=== PATIENT | female | born 1950 | race Caucasian/White ===

== ENCOUNTER → 2018-09-10 09:39 | Outpatient (CLI) | payer MEDICARE, OTHER, SELFPAY ==
--- NOTE | 2018-09-10 | DI.MRI.S_ITS ---
PROCEDURE: MR SHOULDER LT WO CON INDICATIONS: IMPINGEMENT SYNDROME OF LEFT SHOULDER TECHNIQUE: Noncontrast oblique coronal T2 fast spin echo with fat saturation, oblique sagittal T1 spin echo and T2 fast spin echo with fat saturation, axial T1 spin echo and T2 fast spin echo with fat saturation through the shoulder. COMPARISON: Outside Film, CR, XR SHOULDER 2+ VIEWS LEFT, 08/27/2018, 10:23. FINDINGS: Image quality: Excellent. Rotator cuff: Partial-thickness articular sided tear of the supraspinatus tendon measuring approximately 1.0 cm in the AP dimension as seen on sagittal image 16 series 10. The infraspinatus and teres minor tendons appear intact. There is subscapularis partial thickness articular sided tear probably 50% of tendon thickness. A slitlike perforation is seen on image 14 series 10, image 12 series 6. There is borderline atrophy of the supraspinatus muscle and diffuse fatty infiltration of the supraspinatus and infraspinatus muscles. Bones and bursae: No bone marrow contusions or fractures. Mild acromioclavicular joint degeneration. The acromion demonstrates conventional anatomy, without an os acromiale. No pathologic subacromial-subdeltoid or subcoracoid bursal fluid is present. Capsule and soft tissues: Ill-defined frayed appearance of the superior labrum which is technically age-indeterminate and could be degenerative. There is also blunted appearance of the posterior labrum and mild irregularity although this could represent posterior synovial fold image 12 series 6. No posterior subluxation of the humeral head relative to the glenoid nor is there glenoid rim segmental sclerosis. The long head of the biceps tendon demonstrates normal location and morphology. There is obliteration of the subcoracoid fat. The coracohumeral ligament is not well seen although probably intact on image 10 series 10. IMPRESSION: Partial thickness articular sided tear of the supraspinatus tendon. Full-thickness small slitlike perforation, and additional partial-thickness articular sided tear of the subscapularis tendon. Borderline atrophy of the supraspinatus. Diffuse fatty infiltration of the supraspinatus and infraspinatus muscles. Age-indeterminate superior labral fraying, also involving the posterior segment. Dictated by: Grzegorz Juarez M.D. on 09/10/2018 at 12:01 Approved by: Grzegorz Juarez M.D. on 09/10/2018 at 12:12
== END ==
PROVIDERS: Family Provider Family Medicine; PCP Family Medicine; Visit Provider Orthopaedic Surgery
DX: M75.42 Impingement syndrome of left shoulder (principal); M75.112 Incomplete rotator cuff tear or rupture of left shoulder, not specified as traumatic
CPT/HCPCS: 73221

== ENCOUNTER 2019-09-12 10:47 | Emergency (ER) | payer MEDICARE, OTHER, SELFPAY ==
[2019-09-12 10:52] VITALS: BP 126/79; PULSE 100; RESP 13; TEMP 37; O2SAT 98
--- NOTE | 2019-09-12 11:22 | DI.US.S_ITS ---
PROCEDURE: US PERIPH VENOUS LOW EXTREM RT INDICATIONS: PAIN TECHNIQUE: Real-time imaging, as well as color and pulse Doppler interrogation, were performed of the lower extremity deep veins from the inguinal ligament to the popliteal fossa. COMPARISON: None. FINDINGS: The common femoral, femoral and popliteal veins are normally compressible, and free of intraluminal thrombus. Color and pulse Doppler demonstrate normal phasic intraluminal flow. There is normal augmentation response to distal compression maneuver. IMPRESSION: Negative for deep venous thrombosis. Dictated by: Piero Benitez M.D. on 09/12/2019 at 11:06 Approved by: Piero Benitez M.D. on 09/12/2019 at 11:06
[2019-09-12] MEDS: KETOROLAC 60 MG/2 ML VIAL 30 MG IM (11:29)
[2019-09-12] MEDS: CYCLOBENZAPRINE 5 MG TABLET PO (11:41)
[2019-09-12 12:05] VITALS: BP 119/57; PULSE 83; RESP 16; O2SAT 96
--- NOTE | 2019-09-12 12:45 | ED.LOWEXIN ---
HPI - Extremity Injury (Lower) <ANGELA Beck - Last Filed: 09/12/19 14:06> General Chief Complaint: Extremity Injury, Lower Stated Complaint: R leg something wrong cant walk on it Time Seen by Provider: 09/12/19 11:00 Source: patient and family Mode of arrival: Wheelchair Limitations: no limitations History of Present Illness HPI Narrative: The patient is a 61-year-old female nonsmoker with history of complex regional pain syndrome who presents with a chief complaint of right leg pain. She states she woke up with today. She states she has a history of complex regional pain syndrome that is only applicable to her left leg. She denies any falls or trauma. She denies any twisting or abnormal activity. She took 1 5 mg Flexeril at 6:00 a.m. this morning, as well as her oxycodone at 6:30 a.m. and again at 10:00 a.m.. She denies any fevers, nausea vomiting diarrhea. She states her leg is normal temperature, she is slightly concerned about a blood clot as she does not leave the most active lifestyle and has a family history there of. States that the pain radiates up the back of her leg, from her calf up to her thigh. She denies any rashes. Related Data Home Medications Medication Instructions Recorded Confirmed atorvastatin 40 mg tablet 40 mg PO DAILY 06/23/19 06/23/19 citalopram 20 mg tablet 20 mg PO DAILY 06/23/19 06/23/19 esomeprazole magnesium 40 mg 40 mg PO DAILY 06/23/19 06/23/19 capsule,delayed release gabapentin 600 mg tablet 600 mg PO QID tab 06/23/19 06/23/19 levothyroxine 50 mcg capsule 50 mcg PO DAILY 06/23/19 06/23/19 metformin 1,000 mg tablet 1,000 mg PO BID 06/23/19 06/23/19 montelukast 10 mg tablet 10 mg PO QPM 06/23/19 06/23/19 Previous Rx's Medication Instructions Recorded ketorolac 10 mg PO TID #15 tab 09/12/19 Allergies Allergy/AdvReac Type Severity Reaction Status Date / Time No Known Drug Allergies Allergy Verified 06/23/19 13:18 Review of Systems <ANGELA Beck - Last Filed: 09/12/19 14:06> Review of Systems Narrative: GENERAL: Denies chills, fatigue, malaise, fever, sweats. HEENT: Denies sinus pain, ear pain, sore throat, difficulty swallowing, dizziness. RESPIRATORY: Denies dyspnea, cough, wheezing, hemoptysis, sputum. CARDIOVASCULAR: Denies chest pain, palpitations, orthopnea, edema, GASTROINTESTINAL: Denies nausea, vomiting, abdominal pain, diarrhea, constipation, melena. : Denies dysuria, frequency, incontinence, hematuria, urinary retention. MUSCULOSKELETAL: See HPI SKIN: See HPI NEUROLOGIC: Denies weakness, headache, numbness, change in speech, confusion, seizures, incoordination. PSYCHIATRIC: No concerning psychosocial issues. 12 point review of systems is negative except for those stated above Patient History <ANGELA Beck - Last Filed: 09/12/19 14:06> Social History Smoking Status: Never smoker Substance Use Type: does not use Exam <ANGELA Beck - Last Filed: 09/12/19 14:06> Narrative Exam Narrative: GENERAL: This is a well-nourished, well-developed patient, appears uncomfortabl HEAD: Atraumatic. Normocephalic. No temporal or scalp tenderness. EYES: Pupils equal round and reactive. Extraocular motions intact. No scleral icterus. No injection or drainage. ENT: Nose without bleeding, purulent drainage or septal hematoma. Throat without erythema, tonsillar hypertrophy or exudate. Uvula midline. Airway patent. NECK: Trachea midline. No JVD or lymphadenopathy. Supple, nontender, no meningeal signs. CARDIOVASCULAR: Regular rate and rhythm RESPIRATORY: Clear to auscultation. Breath sounds equal bilaterally. No wheezes, rales, or rhonchi. No cough. No increased respiratory effort. No accessory muscle use. GASTROINTESTINAL: Abdomen soft, non-tender, nondistended. No hepato-splenomegaly, or palpable masses. No guarding. EXTREMITIES: General pain to palpation posterior aspect of right leg, ranging from calf all the way through thigh. Positive pedal pulses. Warmth is normal bilateral legs. Able to flex and extend the knee. BACK: Nontender without deformity or crepitance. No flank tenderness. NEURO: AOx3. SKIN: No rash or erythema on visible skin including right flank. Initial Vital Signs Initial Vital Signs: Vital Signs Temperature 98.6 F 09/12/19 10:52 Pulse Rate 100 H 09/12/19 10:52 Respiratory Rate 13 09/12/19 10:52 Blood Pressure 126/79 09/12/19 10:52 Pulse Oximetry 98 09/12/19 10:52 <Jing Portillo DO - Last Filed: 09/13/19 07:12> Initial Vital Signs Initial Vital Signs: Vital Signs Temperature 98.6 F 09/12/19 10:52 Pulse Rate 100 H 09/12/19 10:52 Respiratory Rate 13 09/12/19 10:52 Blood Pressure 126/79 09/12/19 10:52 Pulse Oximetry 98 09/12/19 10:52 Course <ANGELA Beck - Last Filed: 09/12/19 14:06> Orders Ordered: Discontinued Medications Cyclobenzaprine HCl (Flexeril) 5 mg PO NOW ONE Stop: 09/12/19 11:34 Last Admin: 09/12/19 11:41 Dose: 5 mg Documented by: RIGO Ketorolac Tromethamine (Toradol) 30 mg IM NOW ONE Stop: 09/12/19 11:20 Last Admin: 09/12/19 11:29 Dose: 30 mg Documented by: RIGO Vital Signs Vital signs: Vital Signs - 8 hr 09/12/19 10:52 09/12/19 12:05 09/12/19 13:09 Temperature 98.6 F Pulse Rate 100 H 83 95 H Respiratory Rate 13 16 16 Blood Pressure 126/79 Blood Pressure [Left Arm] 119/57 L 116/69 Pulse Oximetry 98 96 97 <Jing Portillo DO - Last Filed: 09/13/19 07:12> Orders Ordered: Discontinued Medications Cyclobenzaprine HCl (Flexeril) 5 mg PO NOW ONE Stop: 09/12/19 11:34 Last Admin: 09/12/19 11:41 Dose: 5 mg Documented by: RIGO Ketorolac Tromethamine (Toradol) 30 mg IM NOW ONE Stop: 09/12/19 11:20 Last Admin: 09/12/19 11:29 Dose: 30 mg Documented by: RIGO Vital Signs Vital signs: Vital Signs - 8 hr 09/12/19 10:52 09/12/19 12:05 09/12/19 13:09 Temperature 98.6 F Pulse Rate 100 H 83 95 H Respiratory Rate 13 16 16 Blood Pressure 126/79 Blood Pressure [Left Arm] 119/57 L 116/69 Pulse Oximetry 98 96 97 MDM - Extremity Injury (Lower) <ANGELA Beck - Last Filed: 09/12/19 14:06> Differential Diagnosis Differential diagnosis: Likely ankle sprain and strain, acute internal derangement of knee, fracture of femur and other (DVT, complex regional pain syndrome) Imaging Data Venous US: Radiologist's impression: Sima Payton 69 F [address] [address] Ultrasound Report Signed Patient: Sima Payton LMR#: [id number] : [id number]:[id number] Age/Sex: 69 / FDate of Service: 09/12/19 Loc: ED Accession Number: [id number] Procedure: US periph venous low extrem rt Ordering Provider: Yadira Frye PROCEDURE: US PERIPH VENOUS LOW EXTREM RT INDICATIONS: PAIN TECHNIQUE: Real-time imaging, as well as color and pulse Doppler interrogation, were performed of the lower extremity deep veins from the inguinal ligament to the popliteal fossa. COMPARISON: None. FINDINGS: The common femoral, femoral and popliteal veins are normally compressible, and free of intraluminal thrombus. Color and pulse Doppler demonstrate normal phasic intraluminal flow. There is normal augmentation response to distal compression maneuver. IMPRESSION: Negative for deep venous thrombosis. Dictated by: Piero Benitez M.D. on 09/12/2019 at 11:06 Approved by: Piero Benitez M.D. on 09/12/2019 at 11:06 [facility] Narrative Medical decision making narrative: The patient is a 61-year-old female with history of complex regional pain syndrome who presents with a chief complaint of right leg pain. She states that she usually has a complex regional pain syndrome on her left leg. She states that she is in so much pain she cannot walk. Given that she is not need an actively extend family history, she is concerned about blood clots. Ultrasound was taken and was negative for deep vein thrombosis. The patient responded very well to Flexeril, which she has a prescription of at home as well as Toradol. She did ambulate without issue. I discussed at length following up with primary care provider. Discussed that pain may be musculoskeletal, [place] complex regional pain syndrome, muscle spasm etc. Discussed at length come back to emergency department for any acute concerns such as chest pain, shortness of breath, concern of blood clot. The patient is neurovascularly intact with a warm leg and palpable pulses throughout her stay in the emergency department. Patient has been of no questions or concerns upon discharge and states understanding of return precautions as well as follow-up care. Discharge Plan Departure Patient Disposition: Home Clinical Impression: Leg pain, right Discharge Date/Time: 09/12/19 13:42 Instructions: DI for Leg Pain Activity Restrictions/Additional Instructions: Your ultrasound was negative for clot today. I have given you a prescription of Toradol. This is an NSAID. Do not combine it with other NSAIDs such as Aleve or ibuprofen. I suggest taking it with some food, as it can irritate your stomach. Please follow up with primary care provider in the next few days. Please come back to the emergency department for any acute concerns such as concern of a blood clot, concern of heart attack or stroke Prescriptions: New ketorolac 10 mg tablet 10 mg PO TID Qty: 15 RF: 0 No Action gabapentin 600 mg tablet 600 mg PO QID RF: 0 metformin 1,000 mg tablet 1,000 mg PO BID RF: 0 levothyroxine 50 mcg capsule 50 mcg PO DAILY RF: 0 esomeprazole magnesium [Nexium] 40 mg capsule,delayed release(DR/EC) 40 mg PO DAILY RF: 0 citalopram 20 mg tablet 20 mg PO DAILY RF: 0 montelukast 10 mg tablet 10 mg PO QPM RF: 0 atorvastatin 40 mg tablet 40 mg PO DAILY RF: 0 Referrals: Derrick Patton MD [Primary Care Provider] -
[2019-09-12 13:09] VITALS: BP 116/69; PULSE 95; RESP 16; O2SAT 97
== END 2019-09-12 13:42 | disposition home or self-care (01) ==
PROVIDERS: Emergency Provider Nurse Practitioner Family; Family Provider Family Medicine; PCP Family Medicine
DX: M79.604 Pain in right leg (principal)
CPT/HCPCS: 93971; 96372; 99282; 99283; J1885

== ENCOUNTER 2020-02-18 14:37 | Emergency (ER) | payer MEDICARE, OTHER, SELFPAY ==
[2020-02-18 14:40] VITALS: BP 121/70; PULSE 95; RESP 14; TEMP 36.9; O2SAT 99
--- NOTE | 2020-02-18 14:51 | DI.RAD.S_ITS ---
PROCEDURE: XR HAND LT MIN 3V INDICATIONS: lateral right hand pain TECHNIQUE: 3 views of the hand(s) acquired. COMPARISON: None. FINDINGS: Bones: No displaced fractures or dislocations. Carpal bones are normally aligned. No suspicious bony lesions. The bone mineralization appears decreased. There moderate degenerative changes present involving the basal joint of the thumb. Soft tissues: No suspicious soft tissue calcifications. IMPRESSION: No displaced fractures of the left hand. Dictated by: Woody Wood M.D. on 02/18/2020 at 14:58 Approved by: Woody Wood M.D. on 02/18/2020 at 14:59
--- NOTE | 2020-02-18 14:51 | DI.RAD.S_ITS ---
PROCEDURE: XR WRIST RT MIN 3V INDICATIONS: s/p FOOSH, deformity, pain, swelling to wrist TECHNIQUE: 4 views of the wrist were acquired. COMPARISON: None. FINDINGS: Bones: A moderately impacted fracture is evident involving the distal radial metaphysis with mild dorsal angulation of the distal fracture fragment. There appears to be intra-articular involvement into the radiocarpal joint. A normal styloid process avulsion fracture is nondisplaced. Moderate degenerative changes are noted involving the basal joint of the thumb. The bone mineralization is decreased. Soft tissues: No suspicious soft tissue calcifications. IMPRESSION: 1. Comminuted and mildly impacted distal radius fracture with intra-articular involvement. 2. Ulnar styloid process fracture. Dictated by: Woody Wood M.D. on 02/18/2020 at 14:55 Approved by: Woody Wood M.D. on 02/18/2020 at 14:58
[2020-02-18] MEDS: HYDROCODONE/ACET 5/325 TABLET 1 TAB PO (15:01)
[2020-02-18] MEDS: ACETAMINOPHEN 325 MG TABLET 650 MG PO (15:01)
--- NOTE | 2020-02-18 15:02 | ED.UPPEXIN ---
HPI - Extremity Injury (Upper) <TEMO Gallardo - Last Filed: 02/18/20 22:46> General Chief Complaint: Extremity Injury, Upper Stated Complaint: Fell at [employer] , thinks she broke her wrist Time Seen by Provider: 02/18/20 14:40 Source: patient Mode of arrival: Wheelchair Limitations: no limitations History of Present Illness HPI narrative: This is a 69-year-old female, nonsmoker, who has significant medical history of diabetes, hypothyroidism, asthma, GERD, depression presents to ED with significant other with chief complain of right wrist pain, swelling, deformity with left lateral hand pain after she had fall on outstretched hand after tripping on a bag at the store prior coming into ED at a store. Denies chest pain, breathing difficulty, lightheadedness prior to fall. Patient denies hitting head, losing consciousness, or other injuries. Patient denies pain in elbows, shoulder, left wrist. She reports has scrapes in bilateral knees but was able to bear weight and ambulate and no difficulty with flexion and extension of bilateral knees. Patient is not currently taking anticoagulants. She rates pain as 8/10. She has previous injury/fracture to right wrist about 18 years ago. Patient reports intact sensation and able to move fingers on bilateral hands but difficulty extending and flexing right wrist with making O signs. Related Data Home Medications Medication Instructions Recorded Confirmed atorvastatin 40 mg tablet 40 mg PO DAILY 06/23/19 06/23/19 citalopram 20 mg tablet 20 mg PO DAILY 06/23/19 06/23/19 esomeprazole magnesium 40 mg 40 mg PO DAILY 06/23/19 06/23/19 capsule,delayed release gabapentin 600 mg tablet 600 mg PO QID tab 06/23/19 06/23/19 levothyroxine 50 mcg capsule 50 mcg PO DAILY 06/23/19 06/23/19 metformin 1,000 mg tablet 1,000 mg PO BID 06/23/19 06/23/19 montelukast 10 mg tablet 10 mg PO QPM 06/23/19 06/23/19 Previous Rx's Medication Instructions Recorded ketorolac 10 mg PO TID #15 tab 09/12/19 hydrocodone-acetaminophen [[place]] 1 tab PO Q8H PRN #14 tab 02/18/20 Allergies Allergy/AdvReac Type Severity Reaction Status Date / Time No Known Drug Allergies Allergy Verified 02/18/20 14:51 Review of Systems <TEMO Gallardo - Last Filed: 02/18/20 22:46> Review of Systems Narrative: General: Denies fever, chills, fatigue, malaise, sweats. HEENT: Denies sinus pain, ear pain, sore throat, difficulty swallowing, dizziness. Respiratory: Denies dyspnea, cough, wheezing, hemoptysis, sputum. Cardiovascular: Denies chest pain, palpitations, orthopnea, edema. Gastrointestinal: Denies nausea, vomiting, abdominal pain, diarrhea, constipation, melena. : Denies dysuria, frequency, incontinence, hematuria, urinary retention. Musculoskeletal: See HPI Skin: See HPI Neurologic: Denies weakness, headache, numbness, change in speech, confusion, seizures, incoordination. Psychiatric: No concerning psychosocial issues. 12-point review of systems is negative except for those stated above. Patient History <TEMO Gallardo - Last Filed: 02/18/20 22:46> Medical History Asthma (Acute) Depression (Acute) Diabetes (Acute) GERD (gastroesophageal reflux disease) (Acute) Hypothyroidism (Acute) Right wrist fracture (Acute) Social History Smoking Status: Never smoker Smoking Status: Never smoker alcohol intake frequency: 0-2 drinks per day Substance Use Type: does not use Exam <TEMO Gallardo - Last Filed: 02/18/20 22:46> Narrative Exam Narrative: GEN: Alert, oriented x 3, well appearing and nourished, and in no acute distress. Head: Normal cephalic, atraumatic. No scalp or temporal tenderness, palpable mass or rash. EYES: Pupils are equal, round, and reactive to light and accommodation. Extraocular muscles are intact bilaterally. There is no subconjunctival hemorrhage, exudate and sclera non-icteric. ENT: Hearing grossly intact. Nose without bleeding, purulent discharge. Mucous membrane moist, no mucosal lesion. Throat without erythema, tonsillar hypertrophy or exudate. Uvula in midline, airway patent. Neck: Trachea in midline. No JVD, non-tender without lymphadenopathy. No masses or thyroid megaly. Supple, non-tender and no meningeal signs. CARDIAC: Normal regular rate and rhythm without murmurs, gallops, or rubs. No chest wall tenderness. No peripheral edema, cyanosis or pallor. Capillary refill is less than 2 seconds. RESPIRATORY: Lungs are clear to auscultate bilaterally. No cough, wheezes, rales, or rhonchi. No stridor, respiratory distress, increase work of breathing, or accessary muscle used. ABD: Abdomen soft, nontender and non-distended. No guarding or rebound tenderness to palpate. Bowel sounds are normal in all 4 quadrants. There is no palpable masses or organomegaly. SKIN: Superficial abrasion on bilateral knee without redness, active bleeding, warmth. Warm, dry, normal color for patient. No erythema, lesions or rash over visible areas. BACK: Nontender without deformity or crepitance. No flank tenderness. NEUROLOGICAL: Alert and oriented to place, time and person. Sensation and motor function intact bilaterally. No facial droops, dysphasia. PSYCHIATRIC: Good judgement and reason, without hallucinations, abnormal affect or abnormal behaviors during the examination. Patient is not suicidal. Initial Vital Signs Initial Vital Signs: Vital Signs Temperature 98.4 F 02/18/20 14:40 Pulse Rate 95 H 02/18/20 14:40 Respiratory Rate 14 02/18/20 14:40 Blood Pressure 121/70 02/18/20 14:40 Pulse Oximetry 99 02/18/20 14:40 Extrem Right upper extremity: wrist Details: abnormal to inspection, tenderness, swelling, abnormal ROM, deformity, normal vascular exam and radial pulse present; no abrasions, no lacerations and no ecchymosis and hand Left upper extremity: normal to inspection, wrist Details: normal to inspection, normal ROM, normal vascular exam and radial pulse present and hand Details: normal to inspection, neuromotor exam normal, neurosensory exam normal, normal ROM of fingers and other (Tender to palpate in lateral metacarpal) Right lower extremity: knee Details: knee ligament exam normal and abrasion; no deformity Left lower extremity: knee Details: normal ROM, knee ligament exam normal and abrasion; no deformity <Yadira Abreu DO - Last Filed: 02/19/20 07:59> Initial Vital Signs Initial Vital Signs: Vital Signs Temperature 98.4 F 02/18/20 14:40 Pulse Rate 95 H 02/18/20 14:40 Respiratory Rate 14 02/18/20 14:40 Blood Pressure 121/70 02/18/20 14:40 Pulse Oximetry 99 02/18/20 14:40 Procedures <TEMO Gallardo - Last Filed: 02/18/20 22:46> Orthopedic Splinting/Casting Injury #1: Side: right Upper Extremity Injury Location: wrist Upper Extremity Immobilizer: sling/shoulder immobilizer (Advised to exercise affected arm out of sling several times a day to prevent frozen shoulder syndrome) and sugar tong splint Post splinting neuro exam: intact Post splinting vascular exam: intact Placed by: Nursing Scores <TEMO Gallardo - Last Filed: 02/18/20 22:46> GCS [place] coma scale eye opening: Spontaneous Bharathi coma scale verbal response: Orientated [place] coma scale motor response: Obey commands [place] coma scale total score: 15 Course <TEMO Gallardo - Last Filed: 02/18/20 22:46> Orders Ordered: Discontinued Medications Acetaminophen (Tylenol) 650 mg PO NOW ONE Stop: 02/18/20 14:51 Last Admin: 02/18/20 15:01 Dose: 650 mg Documented by: CARLOS Hydrocodone Bitart/Acetaminophen ([place] 5/325) 1 tab PO NOW ONE Stop: 02/18/20 14:51 Last Admin: 02/18/20 15:01 Dose: 1 tab Documented by: CARLOS Bacitracin (Bacitracin) 1 applic TOP NOW ONE Stop: 02/18/20 16:48 Vital Signs Vital signs: Vital Signs - 8 hr 02/18/20 14:40 02/18/20 15:04 02/18/20 16:22 Temperature 98.4 F Pulse Rate 95 H 92 H Pulse Rate [Left Radial] 75 Respiratory Rate 14 Blood Pressure 121/70 Blood Pressure [Left Arm] 113/59 L Pulse Oximetry 99 96 02/18/20 17:33 02/18/20 18:14 Temperature Pulse Rate 90 101 H Pulse Rate [Left Radial] Respiratory Rate 16 Blood Pressure 98/57 L Blood Pressure [Left Arm] 96/51 L Pulse Oximetry 95 96 <Yadira Abreu DO - Last Filed: 02/19/20 07:59> Orders Ordered: Discontinued Medications Acetaminophen (Tylenol) 650 mg PO NOW ONE Stop: 02/18/20 14:51 Last Admin: 02/18/20 15:01 Dose: 650 mg Documented by: CARLOS Hydrocodone Bitart/Acetaminophen ([place] 5/325) 1 tab PO NOW ONE Stop: 02/18/20 14:51 Last Admin: 02/18/20 15:01 Dose: 1 tab Documented by: CARLOS Bacitracin (Bacitracin) 1 applic TOP NOW ONE Stop: 02/18/20 16:48 Vital Signs Vital signs: Vital Signs - 8 hr 02/18/20 14:40 02/18/20 15:04 02/18/20 16:22 Temperature 98.4 F Pulse Rate 95 H 92 H Pulse Rate [Left Radial] 75 Respiratory Rate 14 Blood Pressure 121/70 Blood Pressure [Left Arm] 113/59 L Pulse Oximetry 99 96 02/18/20 17:33 02/18/20 18:14 Temperature Pulse Rate 90 101 H Pulse Rate [Left Radial] Respiratory Rate 16 Blood Pressure 98/57 L Blood Pressure [Left Arm] 96/51 L Pulse Oximetry 95 96 MDM - Extremity Injury (Upper) <TEMO Gallardo - Last Filed: 02/18/20 22:46> Differential Diagnosis Differential diagnosis: Likely sprain and strain of wrist, fracture of hand and other (fracture on wrist, contusion of hand, abrasions to knees) Medical Records Attestation: I reviewed the patient's medical records. Imaging Data XR-wrist RT: Radiologist's Impression: Sima Payton 69 F 1950 [place] [address] XRay Report Signed Patient: Sima Payton LMR#: [id number] : 1950cct:[id number] Age/Sex: 69 / FDate of Service: 02/18/20 Loc: ED Accession Number: [id number] Procedure: XR wrist RT min 3V Ordering Provider: Dagoberto Rodriguez PROCEDURE: XR WRIST RT MIN 3V INDICATIONS: s/p FOOSH, deformity, pain, swelling to wrist TECHNIQUE: 4 views of the wrist were acquired. COMPARISON: None. FINDINGS: Bones: A moderately impacted fracture is evident involving the distal radial metaphysis with mild dorsal angulation of the distal fracture fragment. There appears to be intra-articular involvement into the radiocarpal joint. A normal styloid process avulsion fracture is nondisplaced. Moderate degenerative changes are noted involving the basal joint of the thumb. The bone mineralization is decreased. Soft tissues: No suspicious soft tissue calcifications. IMPRESSION: 1. Comminuted and mildly impacted distal radius fracture with intra-articular involvement. 2. Ulnar styloid process fracture. Dictated by: Woody Wood M.D. on 02/18/2020 at 14:55 Approved by: Woody Wood M.D. on 02/18/2020 at 14:58 XR-Hand LT: Radiologist's Impression: [address] [address] XRay Report Signed Patient: Sima Payton LMR#: [id number] : [id number]:[id number] Age/Sex: 69 / FDate of Service: 02/18/20 Loc: ED Accession Number: [id number] Procedure: XR hand LT min 3V Ordering Provider: Dagoberto Rodriguez PROCEDURE: XR HAND LT MIN 3V INDICATIONS: lateral right hand pain TECHNIQUE: 3 views of the hand(s) acquired. COMPARISON: None. FINDINGS: Bones: No displaced fractures or dislocations. Carpal bones are normally aligned. No suspicious bony lesions. The bone mineralization appears decreased. There moderate degenerative changes present involving the basal joint of the thumb. Soft tissues: No suspicious soft tissue calcifications. IMPRESSION: No displaced fractures of the left hand. Dictated by: Woody Wood M.D. on 02/18/2020 at 14:58 Approved by: Woody Wood M.D. on 02/18/2020 at 14:59 MDM Narrative Medical decision making narrative: This is a 69-year-old female who presents to ED with s/p FOOSH on bilateral hand after tripped on a bag at the [employer]. X-ray test shows right dominant hand closed moderate the impacted, comminuted distal radius fracture involving radialcarpal intra-articular space with dorsal angulation of the distal fracture fragment. Also there is ulna styloid process nondisplaced avulsion fracture. Left hand x-ray was negative for fracture or dislocation. Patient had very mild superficial abrasion on bilateral knee worsening on right-sided. Patient was able to flex and extend affected knees and was able to bear weight and ambulate without difficulty. When findings were discussed with patient and spouse, patient elects to see Dr. Sky Sanderson (orthopedist) in [facility] to follow-up with her for wrist fracture which she had established care for her frozen shoulder problem. Dr. Sanderson's office was contacted and BRE Arana informed that she will make a follow up appointment with one of his fellow orthopedists since Dr. Sanderson is not available at the office. BRE Arana state they are able to view the images via PAC System. Dr. Ragsdale was consulted the x-ray findings and he recommended to immoblized the fracture with the wrist splint and to follow up outpatiently by calling the office. No further recommendation was given for possible surgeries at this time. Dr. Sanderson's associates are not available at this time to consult for their recommendations. RICE therapy was instructed and to use [id number] Tylenol and or Motrin as needed as first-line pain management and patient discharged to home with [place] for severe pain management. Return precautions were discussed with patient and patient verbalized understanding and in agreement with treatment plan. Discharge Plan Departure Patient Disposition: Home Clinical Impression: Closed fracture distal radius and ulna Qualifiers: Encounter type: initial encounter Laterality: right Qualified Code(s): S52.501A - Unspecified fracture of the lower end of right radius, initial encounter for closed fracture Contusion of hand Qualifiers: Encounter type: initial encounter Laterality: left Qualified Code(s): S60.222A - Contusion of left hand, initial encounter Abrasion of knee Qualifiers: Encounter type: initial encounter Laterality: unspecified laterality Qualified Code(s): S80.219A - Abrasion, unspecified knee, initial encounter Discharge Date/Time: 02/18/20 18:15 Instructions: DI for Wrist Fracture, DI for Contusion, DI for Abrasion Activity Restrictions/Additional Instructions: You have been diagnosed with [ distal dominant right hand radial communited mildly impacted involving intra articular joint with ulnar styloid process fracture. Please wear splint all time. Please elevate affected arm to prevent swelling and comfort. Use ice pack for next 48 hours intermittently every 20-30 minutes several times a day.]. What to do: *Take your medications as directed. You can take [id number] Tylenol 2 tabs regular strength up to 4 times a day as needed. For severe pain you can add 1 [place] with this. This medication is narcotic medications please avoid driving, drinking alcohol or operate heavy equipments. It can cause constipation so please take precautions. If your currently taking Ketolac, please avoid taking additional ibuprofen/Aleve/naproxen. Otherwise you can take ibuprofen 400 mg up to 3 times a day as needed for pain with food to prevent GI irritation. [place] has been transmitted to [facility]. *Follow up with your primary care provider in 2-3 days, call for an appointment. Let them know you were seen in the ED and that we asked you to be seen in follow up. Dr. shook office nursed Yasmeen will contact you to set up a follow-up appointment. *Return to ED if you have any new, worsening, or concerning symptoms, such as [chest pain, breathing difficulty, unable to tolerate fluids, tingling/numbness/weakness to affected hand, cool limbs or any acute concerns]. Prescriptions: New hydrocodone-acetaminophen [[place]] 5-325 mg tablet 1 tab PO Q8H PRN (Reason: pain) Qty: 14 RF: 0 No Action ketorolac 10 mg tablet 10 mg PO TID Qty: 15 RF: 0 gabapentin 600 mg tablet 600 mg PO QID RF: 0 metformin 1,000 mg tablet 1,000 mg PO BID RF: 0 levothyroxine 50 mcg capsule 50 mcg PO DAILY RF: 0 esomeprazole magnesium [Nexium] 40 mg capsule,delayed release(DR/EC) 40 mg PO DAILY RF: 0 citalopram 20 mg tablet 20 mg PO DAILY RF: 0 montelukast 10 mg tablet 10 mg PO QPM RF: 0 atorvastatin 40 mg tablet 40 mg PO DAILY RF: 0 Referrals: Derrick Patton MD [Primary Care Provider] - Sky Sanderson DO [Non-Staff] -
[2020-02-18 15:04] VITALS: PULSE 75
[2020-02-18 16:22] VITALS: BP 113/59; PULSE 92; O2SAT 96
[2020-02-18 17:33] VITALS: BP 96/51; PULSE 90; RESP 16; O2SAT 95
[2020-02-18 18:14] VITALS: BP 98/57; PULSE 101; O2SAT 96
== END 2020-02-18 18:15 | disposition home or self-care (01) ==
PROVIDERS: Emergency Provider Nurse Practitioner Family; Family Provider Family Medicine; PCP Family Medicine
DX: S52.501A Unspecified fracture of the lower end of right radius, initial encounter for closed fracture (principal); S60.222A Contusion of left hand, initial encounter; S80.219A Abrasion, unspecified knee, initial encounter; W01.0XXA Fall on same level from slipping, tripping and stumbling without subsequent striking against object, initial encounter
CPT/HCPCS: 73110; 73130; 99283

== ENCOUNTER 2023-09-01 19:51 | Inpatient (IN) | payer MEDICARE, SELFPAY ==
[2023-09-01] VITALS (8 sets, daily range): BP systolic 121–149; BP diastolic 61–79; PULSE 83–98; RESP 16–20; TEMP 36.6–36.7; O2SAT 96–98; BMI 20.9
--- NOTE | 2023-09-01 08:00 | DI.MRI.S_ITS ---
PROCEDURE: MR HEAD/BRAIN WO CON INDICATIONS: suspected stroke,confussion TECHNIQUE: Non-contrast axial T1 spin echo, axial T2 fast spin echo, sagittal and axial FLAIR, coronal T2 fast spin echo, axial gradient echo, axial diffusion and ADC through the brain. COMPARISON: None. FINDINGS: Image quality: Excellent. CSF spaces: Ventricles appear symmetric in size and shape. Basal cisterns are patent. No extra-axial fluid collections. Brain: No intracranial bleeds or mass effects. There is cerebral volume loss for age. There are periventricular and deep white matter chronic small vessel ischemic changes. Brainstem appears normal. Diffusion-weighted images show no acute ischemic insults. No chronic ischemic insults. Normal intravascular flow voids are present. Skull and face: Calvarial bone marrow is normal in signal. Orbits are normal. Sinuses: Sinuses and mastoids are clear. IMPRESSION: 1. No acute intracranial findings. Specifically, no findings to suggest acute or subacute infarct. 2. Mild changes likely associated with chronic microvascular ischemia. Dictated by: Beatriz Archibald M.D. on 09/02/2023 at 8:43 Approved by: Beatriz Archibald M.D. on 09/02/2023 at 8:53
--- NOTE | 2023-09-01 20:04 | DI.CT.S_ITS ---
PROCEDURE: CT HEAD/BRAIN WO CON INDICATIONS: altered mental status TECHNIQUE: Noncontrast 4.5 mm thick angled axial sections acquired from the foramen magnum to the vertex, with coronal and sagittal reformats. For radiation dose reduction, the following was used: automated exposure control, adjustment of mA and/or kV according to patient size. COMPARISON: None. FINDINGS: Image quality: Excellent. CSF spaces: Basal cisterns are patent. No extra-axial fluid collections. The ventricles are symmetric in size and shape. Brain: No intracranial bleeds or masses. There is cerebral volume loss for age, with resultant ventricular and sulcal prominence. There are periventricular and deep white matter chronic small vessel ischemic changes. There is intracranial internal carotid artery atherosclerosis. Skull and face: Calvarium and visualized facial bones appear intact, without suspicious lesions. Sinuses: Visualized sinuses and mastoids are clear. IMPRESSION: 1. No acute intracranial process. 2. Moderate atrophy and chronic microvascular ischemic changes. Dictated by: Nilda Smyth M.D. on 09/01/2023 at 20:39 Approved by: Nilda Smyth M.D. on 09/01/2023 at 20:40
--- NOTE | 2023-09-01 20:05 | ED.GENADULT ---
HPI - General Adult General Chief complaint: Altered Mental Status Stated complaint: AMS Time Seen by Provider: 09/01/23 20:02 Source: patient and family Mode of arrival: EMS History of Present Illness HPI narrative: 73-year-old woman with a history of chronic pain currently on gabapentin and oxycodone, type 2 diabetes, hyperlipidemia, hypothyroidism who presents by medics after her called complaining that she was having difficulty with speech. Noticed symptoms starting on Saturday night, 48 hours ago, and progressively worse over the weekend to the point where she is having significant word-finding difficulties and more and more fluency issues. There is no other motor abnormalities, no signs of infection but she does have a history of recurrent urinary tract symptoms. She is had no complaints of chest pain, cough, palpitations, abdominal pain, vomiting, diarrhea or nausea per her . Patient is affable but not oriented to time or place. Reports no pain. She can respond to simple direct commands and answer simple questions but has significant word-finding difficulties Related Data Home Medications Medication Instructions Recorded Confirmed atorvastatin 40 mg tablet 40 mg PO DAILY 06/23/19 06/23/19 citalopram 20 mg tablet 20 mg PO DAILY 06/23/19 06/23/19 esomeprazole magnesium 40 mg 40 mg PO DAILY 06/23/19 06/23/19 capsule,delayed release (Nexium) gabapentin 600 mg tablet 600 mg PO QID 06/23/19 06/23/19 levothyroxine 50 mcg capsule 50 mcg PO DAILY 06/23/19 06/23/19 metformin 1,000 mg tablet 1,000 mg PO BID 06/23/19 06/23/19 montelukast 10 mg tablet 10 mg PO QPM 06/23/19 06/23/19 Previous Rx's Medication Instructions Recorded ketorolac 10 mg tablet 10 mg PO TID #15 tabs 09/12/19 hydrocodone 5 mg-acetaminophen 325 1 tab PO Q8H PRN pain #14 tabs 02/18/20 mg tablet ([place]) Allergies Allergy/AdvReac Type Severity Reaction Status Date / Time No Known Drug Allergies Allergy Verified 02/18/20 14:51 Review of Systems Review of Systems Narrative: Pertinent positive and negative findings as per HPI Patient History Medical History (Updated 09/01/23 @ 20:57 by Angela Dickson MD) Right wrist fracture Depression Asthma GERD (gastroesophageal reflux disease) Hypothyroidism Diabetes Social History Smoking Status: Never smoker Smoking Status: Never smoker alcohol intake frequency: 0-2 drinks per day Substance Use Type: does not use Exam Initial Vital Signs Initial Vital Signs: Vital Signs Temperature 98.0 F 09/01/23 19:51 Pulse Rate 98 H 09/01/23 19:51 Respiratory Rate 18 09/01/23 19:51 Blood Pressure 149/79 H 09/01/23 19:51 Pulse Oximetry 98 09/01/23 19:51 Oxygen Delivery Method Room Air 09/01/23 19:51 General: Healthy appearing, in no acute distress. HEENT: Moist mucous membranes, normal sclera with reactive pupils, Neck: No JVD, supple Respiratory: Lungs are clear to auscultation, no wheezing no rales no rhonchi. Full and symmetrical air movement Cardiac: Regular rate and rhythm no murmurs no bruits Abdomen: Soft, nontender, good bowel tones, no flank pain Skin: Warm and dry, no rashes Neurologic: She is moving all extremities and has no sensation loss or facial droop Extremities: No trauma, well perfused Psych: Cooperative, not oriented to person time or place, significant word-finding difficulties because of the word-finding difficulties more challenging to fully evaluate fluency. She does not have any dysarthria NIH Stroke Scale/Score RESULT SUMMARY: 4 points NIH Stroke Scale INPUTS: 1A: Level of consciousness ?> 0 = Alert; keenly responsive 1B: Ask month and age ?> 2 = 0 questions right 1C: 'Blink eyes' & 'squeeze hands' ?> 0 = Performs both tasks 2: Horizontal extraocular movements ?> 0 = Normal 3: Visual oscar ?> 0 = No visual loss 4: Facial palsy ?> 0 = Normal symmetry 5A: Left arm motor drift ?> 0 = No drift for 10 seconds 5B: Right arm motor drift ?> 0 = No drift for 10 seconds 6A: Left leg motor drift ?> 0 = No drift for 5 seconds 6B: Right leg motor drift ?> 0 = No drift for 5 seconds 7: Limb Ataxia ?> 0 = No ataxia 8: Sensation ?> 0 = Normal; no sensory loss 9: Language/aphasia ?> 2 = Severe aphasia: fragmentary expression, inference needed, cannot identify materials 10: Dysarthria ?> 0 = Normal 11: Extinction/inattention ?> 0 = No abnormality Course Orders Ordered: ED Orders 09/01/23 20:00 Complete Blood Count AUTO DIFF Stat Comprehensive Metabolic Panel Stat Lactate (Lactic Acid) Stat Thyroid Stimulating Hormone Stat 09/01/23 20:02 Blood Culture Stat EKG-12 Lead Stat 09/01/23 20:04 CT head/brain wo con Stat 09/01/23 20:18 Ictotest Urine Stat Urinalysis and Microscopic Stat Urine Culture Stat Urine Drug Screen, Rapid Stat Sodium Chloride (Normal Saline 0.9%) 1,000 mls @ 1,000 mls/hr IV BOLUS ONE Stop: 09/01/23 21:53 Last Admin: 09/01/23 21:00 Dose: 1,000 mls/hr Vital Signs Vital signs: Vital Signs - 8 hr 09/01/23 19:51 09/01/23 19:57 09/01/23 20:00 Temperature 98.0 F Pulse Rate 98 H 94 H 93 H Respiratory Rate 18 16 16 Blood Pressure 149/79 H Pulse Oximetry 98 98 98 Oxygen Delivery Method Room Air 09/01/23 20:31 Temperature Pulse Rate 91 H Respiratory Rate Blood Pressure Pulse Oximetry 96 Oxygen Delivery Method Medical Decision Making Lab Data 09/01/23 20:00 09/01/23 20:00 Labs: Lab Results 09/01/23 09/01/23 Range/Units 20:00 20:18 WBC 3.9 L (4.5-11.0) X10^3/uL RBC 3.69 L (4.0-5.2) X10^6/uL Hgb 9.8 L (12.0-16.0) g/dL Hct 30.8 L (36-46) % MCV 83.5 (80-100) fL MCH 26.4 (26-34) PG MCHC 31.6 (30-36) % RDW 17.6 H (11.6-14.8) % Plt Count 488 H (150-400) X10^3/uL Neut % (Auto) 56.5 (50-75) % Lymph % (Auto) 26.6 (25-40) % [place] % (Auto) 15.4 H (3-14) % Eos % (Auto) 0.9 L (2-4) % Baso % (Auto) 0.6 (0-2) % Neut # (Auto) 2200 (0570-4215) /uL Lymph # (Auto) 1000 L (5677-1029) /uL [place] # (Auto) 600 (0-900) /uL Eos # (Auto) 0 (0-450) /uL Baso # (Auto) 0 (0-100) /uL Sodium 139 (137-145) mmol/L Potassium 4.5 (3.4-5.1) mmol/L Chloride 107 (98-107) mmol/L Carbon Dioxide 13 L (22-32) mmol/L BUN 46 H (7-17) mg/dL Creatinine 1.70 H (0.52-1.04) mg/dL Estimated GFR 32 L (>60) mL/min BUN/Creatinine Ratio 27.1 H (6-22) Glucose 128 H (80-110) mg/dL Lactate 1.2 (0.7-2.1) mmol/L Calcium 10.1 (8.4-10.2) mg/dL Total Bilirubin 0.5 (0.2-1.3) mg/dL AST 22 (14-36) IU/L ALT 13 (<35) IU/L Alkaline Phosphatase 89 (38-126) U/L Total Protein 7.9 (6.3-8.2) g/dL Albumin 4.6 (3.5-5.0) g/dL Globulin 3.3 (1.7-4.1) g/dL Albumin/Globulin Ratio 1.4 (1.0-2.8) Urine Color Yellow Urine Appearance Cloudy Urine pH 5.5 (4.5-8.0) Ur Specific [place] >=1.030 H (1.000-1.035) Urine Protein 1+ H (Negative) Urine Glucose (UA) Negative (Negative) g/dL Urine Ketones 1+ H (NEGATIVE) Urine Occult Blood 1+ H (Negative) Urine Nitrate Negative (Negative) Urine Bilirubin 2+ H (NEGATIVE) Ur Bilirubin Confirm Negative (Negative) Urine Urobilinogen 0.2 (0.2) E.U./dL Ur Leukocyte Esterase 2+ H (NEGATIVE) Urine RBC 1-5/hpf (0-5/HPF) Urine WBC 5-10/hpf H (0-5/HPF) Ur Squamous Epith Cells None seen (0-5/HPF) Amorphous Sediment 2+ Urine Bacteria None seen (None) Ur Culture Indicated? Specimen cultured U Opiates 300ng/mL cut Negative (Negative) Ur Oxycodone Screen Positive H (Negative) Urine Methadone Screen Negative (Negative) Ur Barbiturates Screen Negative (Negative) U Tricyclic Antidepress Negative (Negative) Ur Phencyclidine Scrn Negative (Negative) Ur Amphetamines Screen Negative (Negative) U Methamphetamines Scrn Negative (Negative) Ur MDMA Scrn (Ecstasy) Negative (Negative) U Benzodiazepines Scrn Negative (Negative) Urine Cocaine Screen Negative (Negative) U Marijuana (THC) Screen Negative (Negative) Point of Care Testing Glucose POC 133 Point of care testing: Point of Care Testing Glucose POC 133 MDM Narrative Medical decision making narrative: CC: Speech abnormalities for 48 hours Complicating co-morbidities: Depression, hyperlipidemia, chronic pain, hypothyroidism, diabetes Data collected from: patient, medics, Medical records reviewed: Notes from pain management clinic June of 2019 are available for review. Differential considered: Stroke, intracranial mass, infection, Exam documented above, pertinent findings include: No physical distress, some word-finding difficulties can follow directions nonfluent speech heart and lungs are benign no lower extremity edema Lab Test results independently reviewed as above. Pertinent findings: CBC shows a white count of 3.9, H&H of 9.8 and 30.8, platelet count of 488 comparison H&H from November of 2021 reveals hemoglobin of 11.2 and hematocrit of 36.3 Chemistries show a mild bump in creatinine of 1.7. In comparison to November of 2021 creatinine was 1.2. Remainder of chemistries are fairly benign Lactic acid is appropriate Independently reviewed EKG shows sinus rhythm at a rate of 90, nonspecific STT wave changes. Normal intervals and axis Imaging studies independently reviewed: Head CT shows no acute intracranial process Urine shows leukocyte esterase white blood cells no bacteria ketones and occult blood as well as bilirubin are appreciated. This is not sent for culture. Urine tox is positive for oxycodone which is 1 of her chronic medications, no other findings Consultations: discussed with Dr Briggs. Admit accepted Re-evaluations:9pm patient is re-evaluated, exam is unchanged. Findings reviewed with her as well as her both agree that hospitalization is acceptable. Discussion: 73-year-old woman with significant change in speech patterns/fluency with word-finding difficulties over the last 48 hours getting worse. Most consistent with stroke. Initial CT scan is unremarkable no alternate explanation such as infection or acute cardiac event is appreciated. She is well out of the time window for tPA to be considered. Will add a CT angio of the head and neck with anticipation of likely brain MR tomorrow. Will need remaining stroke workup and hospital admission. Will review with the hospitalist service Additional Information: Stroke & Stroke Rehabilitation: Thrombolytic Therapy The patient was diagnosed with subacute or acute ischemic stroke. IV t-PA was not initiated within 3 hours of last known well due to [initial symptoms started more than 48hrs ago]: [MIPS PERFORMANCE EXCEPTION/EXCLUSION] Patient arrived more than 2 hours after last known well time, or the time last known well is unknown Discharge Plan Departure Patient Disposition: Admitted As Inpatient Clinical Impression: Stroke Qualifiers: CVA mechanism: unspecified Qualified Code(s): I63.9 - Cerebral infarction, unspecified
[2023-09-01 20:30] LABS: Add Manual Diff / Slide Review NO; Basophils Absolute Auto 0 /uL (0-100); Basophils Percent Auto 0.6 % (0-2); Eosinophils Absolute Auto 0 /uL (0-450); Eosinophils Percent Auto 0.9 % (2-4); Hematocrit 30.8 % (36-46); Hemoglobin 9.8 g/dL (12.0-16.0); Lymphocytes Absolute Auto 1000 /uL (1100-4500); Lymphocytes Percent Auto 26.6 % (25-40); Mean Corpuscular HGB Conc 31.6 % (30-36); Mean Corpuscular Hemoglobin 26.4 PG (26-34); Mean Corpuscular Volume 83.5 fL (80-100); Monocytes Absolute Auto 600 /uL (0-900); Monocytes Percent Auto 15.4 % (3-14); Neutrophils Absolute Auto 2200 /uL (1500-7000); Neutrophils Percent Auto 56.5 % (50-75); Platelet Count 488 X10^3/uL (150-400); Red Blood Cell Count 3.69 X10^6/uL (4.0-5.2); Red Cell Distribution Width 17.6 % (11.6-14.8); White Blood Cell Count 3.9 X10^3/uL (4.5-11.0)
[2023-09-01 20:33] LABS: Lactate (Lactic Acid) 1.2 mmol/L (0.7-2.1)
[2023-09-01 20:34] LABS: UR Morphine/Opiate cutoff 300 Negative (Negative); Ur Creatinine Normal (Normal); Ur Specific Gravity Normal (Normal); Urine Amphetamines Negative (Negative); Urine Barbiturates Negative (Negative); Urine Benzodiazepines Negative (Negative); Urine Cocaine Negative (Negative); Urine MDMA Negative (Negative); Urine Methadone Negative (Negative); Urine Methamphetamines Negative (Negative); Urine Oxycodone Positive (Negative); Urine Phencyclidine Negative (Negative); Urine Tetrahydrocannabinol Negative (Negative); Urine Tricyclic Antidepressant Negative (Negative); Urine pH Normal (Normal)
[2023-09-01 20:34] LABS: Alanine Aminotransferase 13 IU/L (<35); Albumin 4.6 g/dL (3.5-5.0); Albumin Globulin Ratio 1.4 (1.0-2.8); Alkaline Phosphatase 89 U/L (38-126); Aspartate Aminotransferase 22 IU/L (14-36); BUN Creatinine Ratio 27.1 (6-22); Bilirubin Total 0.5 mg/dL (0.2-1.3); Blood Urea Nitrogen 46 mg/dL (7-17); Calcium 10.1 mg/dL (8.4-10.2); Carbon Dioxide 13 mmol/L (22-32); Chloride 107 mmol/L (98-107); Estimated Glomerular Filt Rate 32 mL/min (>60); Globulin 3.3 g/dL (1.7-4.1); Glucose 128 mg/dL (80-110); HEMOLYSIS < 15 (0-50); Potassium 4.5 mmol/L (3.4-5.1); Sodium 139 mmol/L (137-145); Total Protein 7.9 g/dL (6.3-8.2)
[2023-09-01 20:35] LABS: Appearance Urine UA CLOUDY; Bilirubin Urine UA 2+ (NEGATIVE); Color Urine UA YELLOW; Glucose Urine UA NEGATIVE (Negative); Ketones Urine UA 1+ (NEGATIVE); Leukocyte Esterase Urine UA 2+ (NEGATIVE); Nitrite Urine UA NEGATIVE (Negative); Occult Blood Urine UA 1+ (Negative); Protein Urine UA 1+ (Negative); Specific Gravity Urine UA >=1.030 (1.000-1.035); Urobilinogen Urine UA 0.2 E.U./dL (0.2)
[2023-09-01 20:37] LABS: pH Urine UA 5.5 (4.5-8.0)
[2023-09-01 20:48] LABS: Amorphous Sediment Urine 2+; Bacteria Urine None Seen; Culture Indicated Urine Specimen Cultured; RBC Urine 1-5/HPF (0-5/HPF); Squamous Epithelial Cell Urine None Seen (0-5/HPF); WBC Urine 5-10/HPF (0-5/HPF)
[2023-09-01] MEDS: SODIUM CHLORIDE 0.9% 1,000 ML 1000 ML IV (21:00)
[2023-09-01 21:03] LABS: Ictotest Urine Negative (Negative)
--- NOTE | 2023-09-01 21:06 | DI.CT.S_ITS ---
PROCEDURE: CT ANGIO CHEST PE PROTOCOL INDICATIONS: stroke TECHNIQUE: After the administration of intravenous contrast, 2 mm thick sections acquired from the pulmonary apices to the posterior costophrenic angles. 3-dimensional maximum intensity projection (MIP) coronal and sagittal reformats were then acquired through the thorax. For radiation dose reduction, the following was used: automated exposure control, adjustment of mA and/or kV according to patient size. COMPARISON: None. FINDINGS: Image quality: Diagnostic. Pulmonary arteries: Pulmonary arteries are normal in size, and demonstrate no intraluminal filling defects to suggest central pulmonary embolism. Lungs and pleura: Lungs are clear. No pleural effusions or pneumothorax. Central and peripheral airways are patent. Mediastinum: Heart size is normal, without pericardial effusion. No mediastinal or hilar adenopathy. Thoracic aorta is normal in caliber and enhancement. Esophagus is normal in caliber, with prominent hiatal hernia. Bones and chest wall: No suspicious bony lesions. Ribs and thoracic spine appear intact throughout. No axillary or supraclavicular adenopathy. Low-attenuation focus is present in the right thyroid lobe. Abdomen: Visualized upper abdominal solid organs appear normal in the early arterial phase of enhancement. IMPRESSION: No pulmonary embolus. No acute cardiopulmonary process. Large hiatal hernia. Dictated by: Nilda Smyth M.D. on 09/01/2023 at 21:38 Approved by: Nilda Smyth M.D. on 09/01/2023 at 21:40
--- NOTE | 2023-09-01 22:12 | DI.ECHO.S_ITS ---
[place]---------+ [facility] +---------+ : : [address] : : : : [id number] : : : : Phone: [phone]+ Echocardiogram Report + + :Name: ANGIE ROSARIO Study Date: 09/02/2023 Height: 65.5 in: :[facility] ReadingLocation: Weight: 130 lb : : Gender: Female BSA: 1.7 m2 : :: 1950 Age: 73 yrs BP: 97/58 mmHg : :Reason For Study: CVA : :Ordering Physician: LOLA, : :DARRIUS Parra MD Performed By: Alicia Acevedo : :Referring: DARRIUS DAVILA MD : + + Interpretation Summary Normal left ventricle size with hyperdynamic function and ejection fraction 70-75%. Mild mitral regurgitation. Procedure: A two-dimensional transthoracic echocardiogram with color flow and Doppler was performed. The study quality was technically adequate. There is no prior echocardiogram noted for this patient. The patient was in sinus rhythm with heart rates between 82-90 bpm during the exam. Left Ventricle: The left ventricle is normal in size and wall thickness. The left ventricle is hyperdynamic. The ejection fraction is estimated to be 70- 75%. There are no focal wall motion abnormalities. Right Ventricle: The right ventricle is normal in size and function. Atria: The left atrial size is normal. Right atrial size is normal. There is no Doppler evidence for an interatrial shunt. Mitral Valve: The mitral valve leaflets appear borderline thickened, but open well. There is mild mitral regurgitation. Aortic Valve: The aortic valve is trileaflet. The aortic valve opens well. There is no aortic valve stenosis. No aortic regurgitation is present. Tricuspid Valve: The tricuspid valve is normal in structure and function. There is trace tricuspid regurgitation. Pulmonic Valve: The pulmonic valve leaflets are thin and pliable; valve motion is normal. There is no pulmonic valvular regurgitation. Great Vessels: The aortic root is normal size. The dimensions of the ascending aorta are normal. The IVC is of normal diameter and collapses greater than 50% with a sniff. This suggests a low right atrial pressure of 3 mm Hg. Pericardium/ Pleura There is no pericardial effusion. There is no pleural effusion. MMode/2D Measurements & Calculations LVIDd: 4.1 cm LVOT diam: 2.1 cm LVIDs: 2.2 cm Ao root diam: 3.5 cm FS: 45.7 % asc Aorta Diam: 3.0 cm IVSd: 0.92 cm Ao Arch Diam (Prox Trans): 2.5 cm LVPWd: 0.89 cm LV [place]. diameter/BSA (cm/m^2): 2.5 LV sys. diameter/BSA (cm/m^2): 1.3 LA A2 area: 17.4 cm2 RA long axis: 4.4 cm LA A4 area: 18.1 cm2 RA area: 12.9 cm2 LA length (vol): 5.1 cm RA vol: 32.3 ml LA vol: 52.8 ml RA : 19.4 ml/m2 LA vol index: 31.8 ml/m2 IVC diam: 1.0 cm RVD1 (basal): 3.5 cm TAPSE: 1.9 cm Doppler Measurements & Calculations Ao V2 max: 187.9 cm/sec LVOT Max Yasir: 184.4 cm/sec Ao V2 mean: 131.3 cm/sec LV V1 max P.6 mmHg Ao max P.1 mmHg LV V1 VTI: 36.8 cm Ao mean P.1 mmHg HALLE(I,D): 3.5 cm2 Ao V2 VTI: 34.5 cm HALLE(V,D): 3.3 cm2 sev ratio: 1.1 HALLE indexed to BSA (cm^2/m^2): 2.1 MV E max yasir: 72.2 cm/sec PA V2 max: 84.1 cm/sec MV A max yasir: 108.9 cm/sec PA V2 mean: 60.0 cm/sec MV E/A: 0.66 PA mean P.6 mmHg Med Peak E' Yasir: 6.5 cm/sec PA pr(Accel): 31.9 mmHg E/E' med: 11.2 Lat Peak E' Yasir: 8.1 cm/sec E/E' lat: 8.9 E/e' average: 10.0 MV dec time: 0.24 sec SV(LVOT): 122.0 ml Electronically signed by: Gregor Benedict on Reading Physician:09/02/2023 12:24 PM
--- NOTE | 2023-09-01 23:33 | PM.HP.1 ---
History of Present Illness History of Present Illness Date Patient Seen: 09/01/23 Chief complaint: AMS Narrative: 73 y/o with PMH of HLD, DM, CKD, anemia, hypothyroidism, MSK pain, chronic use of opiates, developed difficulty speaking and confusion 2 days prior to arrival to ED. Presented with and son, with global, expressive > receptive aphasia. She had no difficulties with swallowing, focal weakness or numbness. [facility] Medical History (Updated 09/02/23 @ 00:11 by Denis Woods MD) Anemia CKD (chronic kidney disease) HLD (hyperlipidemia) Right wrist fracture Depression Asthma GERD (gastroesophageal reflux disease) Hypothyroidism Diabetes Social History Smoking Status: Never smoker Meds Home Medications and Allergies Home Medications Medication Instructions Recorded Confirmed Type atorvastatin 40 mg tablet 40 mg PO DAILY 06/23/19 09/01/23 History citalopram 20 mg tablet 20 mg PO 4XD PRN anxiety, 06/23/19 09/01/23 History depression esomeprazole magnesium 40 mg 40 mg PO DAILY 06/23/19 09/01/23 History capsule,delayed release (Nexium) gabapentin 600 mg tablet 600 mg PO QID chronic pain 06/23/19 09/01/23 History levothyroxine 50 mcg capsule 50 mcg PO DAILY 06/23/19 09/01/23 History metformin 1,000 mg tablet 1,000 mg PO BID 06/23/19 09/01/23 History montelukast 10 mg tablet 10 mg PO QPM 06/23/19 09/01/23 History Allergies Allergy/AdvReac Type Severity Reaction Status Date / Time No Known Drug Allergies Allergy Verified 02/18/20 14:51 Review of Systems Review of Systems Narrative: Partial due to mainly expressive aphasia, was helpful Constitutional Comments: w/o fever, sweats, chills Eyes Comments: not sure if her vision changed Cardiovascular Comments: w/o chest pain or palpitations Respiratory Comments: w/o cough or shortness of breath Gastrointestinal Comments: w/o complaints Genitourinary Comments: w/o complaints Musculoskeletal Comments: chronic pain Neurologic Comments: confused, unable to speak Exam Vital Signs (past 8 hours): - 09/01/23 19:51 09/01/23 19:57 09/01/23 20:00 Temperature 98.0 F Pulse Rate 98 H 94 H 93 H Respiratory Rate 18 16 16 Blood Pressure 149/79 H Pulse Oximetry 98 98 98 Oxygen Delivery Method Room Air Oxygen Flow Rate 09/01/23 20:31 09/01/23 20:59 09/01/23 20:59 Temperature Pulse Rate 91 H 90 Respiratory Rate 16 Blood Pressure 134/74 Pulse Oximetry 96 97 Oxygen Delivery Method Oxygen Flow Rate 09/01/23 21:00 09/01/23 21:00 09/01/23 21:30 Temperature Pulse Rate 90 83 Respiratory Rate 20 20 Blood Pressure 132/61 Pulse Oximetry 98 96 Oxygen Delivery Method Oxygen Flow Rate 09/01/23 21:55 Temperature 97.8 F Pulse Rate 84 Respiratory Rate 16 Blood Pressure 121/74 Pulse Oximetry 98 Oxygen Delivery Method Oxygen Flow Rate 0 Oxygen Delivery Method Room Air Oxygen Flow Rate 0 Narrative Exam Narrative: sitting in bed in no distress, and son at bedside HENMT Other: normocephalic Eyes Other: reactive pupils, EOMI Neck Other: supple Resp Other: CTA Cardio Other: ARLETTE at Rt upper sternum GI Other: not distended Skin Other: pale Neuro Other: expressive aphasia, to a lesser degree receptive cognitive deficits - impaired memory, attention Extrem Other: w/o swelling Psych Other: appropriate mood Objective ECG Impression: NSR, w/o ischemic changes Labs 09/01/23 20:00 09/01/23 20:00 Labs: Laboratory Results - last 24 hr 09/01/23 09/01/23 20:00 20:18 WBC 3.9 L RBC 3.69 L Hgb 9.8 L Hct 30.8 L MCV 83.5 MCH 26.4 MCHC 31.6 RDW 17.6 H Plt Count 488 H Neut % (Auto) 56.5 Lymph % (Auto) 26.6 [place] % (Auto) 15.4 H Eos % (Auto) 0.9 L Baso % (Auto) 0.6 Neut # (Auto) 2200 Lymph # (Auto) 1000 L [place] # (Auto) 600 Eos # (Auto) 0 Baso # (Auto) 0 Sodium 139 Potassium 4.5 Chloride 107 Carbon Dioxide 13 L BUN 46 H Creatinine 1.70 H Estimated GFR 32 L BUN/Creatinine Ratio 27.1 H Glucose 128 H Lactate 1.2 Calcium 10.1 Total Bilirubin 0.5 AST 22 ALT 13 Alkaline Phosphatase 89 Total Protein 7.9 Albumin 4.6 Globulin 3.3 Albumin/Globulin Ratio 1.4 TSH 0.590 Urine Color Yellow Urine Appearance Cloudy Urine pH 5.5 Ur Specific [place] >=1.030 H Urine Protein 1+ H Urine Glucose (UA) Negative Urine Ketones 1+ H Urine Occult Blood 1+ H Urine Nitrate Negative Urine Bilirubin 2+ H Ur Bilirubin Confirm Negative Urine Urobilinogen 0.2 Ur Leukocyte Esterase 2+ H Urine RBC 1-5/hpf Urine WBC 5-10/hpf H Ur Squamous Epith Cells None seen Amorphous Sediment 2+ Urine Bacteria None seen Ur Culture Indicated? Specimen cultured U Opiates 300ng/mL cut Negative Ur Oxycodone Screen Positive H Urine Methadone Screen Negative Ur Barbiturates Screen Negative U Tricyclic Antidepress Negative Ur Phencyclidine Scrn Negative Ur Amphetamines Screen Negative U Methamphetamines Scrn Negative Ur MDMA Scrn (Ecstasy) Negative U Benzodiazepines Scrn Negative Urine Cocaine Screen Negative U Marijuana (THC) Screen Negative Assessment & Plan Assessment and plan (1) Aphasia due to acute stroke: Status: Acute Plan: [employer] Mainly expressive (2) Stroke: Qualifiers: CVA mechanism: unspecified Qualified Code(s): I63.9 - Cerebral infarction, unspecified Status: Acute Plan: Presumed MRI pending Risk factors - HLD, DM - ASA, statin - spinner hand, echo - lipid panel, A1C pending (3) HLD (hyperlipidemia): Status: Acute Plan: On 40 of Lipitor. Lipid panel pending. High-intensity statin if indicated (4) CKD (chronic kidney disease): Status: Acute Plan: Cr in 11/2022 1.2 (5) NEDA (acute kidney injury): Status: Acute Plan: Cr today 1.7, urine concentrated. thinks that she had enough to drink Had liter of NS in ED BMP in am (6) Anemia: Status: Acute Plan: iron deficiency panel pending - Hx of NSAID for MSK pain but takes nexium - stool guaiac pending (7) Diabetes: Status: Acute Plan: On 1 g of Metformin bid. A1C pending. Metformin held - Cr 1.7 Instead SS for now (8) Depression: Status: Acute (9) Asthma: Status: Acute Plan: Singulair (10) Hypothyroidism: Status: Acute Plan: Synthroid 50 mcg daily. TSH WNR. (11) GERD (gastroesophageal reflux disease): Status: Acute Plan: PPI
--- NOTE | 2023-09-02 03:01 | DI.CT.S_ITS ---
PROCEDURE: CT ANGIO HEAD AND NECK INDICATIONS: stroke TECHNIQUE: After the administration of intravenous contrast, 1 mm thick sections acquired from the aortic arch through the Pratt of [place]. 3-dimensional ttfigpf-huolgyqeh-vbtlifpttc (MIP) and/or volume rendering reformats were acquired of the central intracranial vasculature and neck separately. For radiation dose reduction, the following was used: automated exposure control, adjustment of mA and/or kV according to patient size. COMPARISON: None. FINDINGS: Image quality: Diagnostic. BRAIN: CSF spaces: Ventricles are normal in size and shape. Basal cisterns are patent. No extra-axial fluid collections. Brain: No significant abnormality of the brain can be seen. No area of abnormal intraosseous enhancement. Skull and face: Calvarium and facial bones appear intact, without suspicious lesions. Orbits appear normal. Sinuses: Sinuses and mastoids are clear. HEAD CT ANGIOGRAPHY: Anterior circulation: Intracranial internal carotid arteries are normal in size and flow. The flow within the paired anterior cerebral arteries is normal and symmetric. The flow within the middle cerebral arteries is normal and symmetric. The anterior communicating artery is seen. No aneurysms are seen. Posterior circulation: Visualized portions of the vertebral arteries demonstrate normal caliber, and join to form a normal appearing basilar artery. Flow within the posterior cerebral arteries is normal and symmetric. No aneurysms are seen. NECK CT ANGIOGRAPHY: Carotid system: The great vessels demonstrate a conventional anatomy as they arise from the aortic arch. The origins of the common carotid arteries appear patent. The common carotid arteries demonstrate normal caliber and courses. The bifurcation regions are both widely patent. The internal carotid arteries demonstrate normal calibers and courses. Posterior circulation: The origins of the vertebral arteries both appear widely patent. The more superior extracranial portions of both vertebral arteries also demonstrate normal courses and calibers. They join to form a normal appearing basilar artery. Soft tissues: Visualized neck soft tissues demonstrate no suspicious abnormalities. Heterogeneous enhancement of thyroid gland with suggestion of bilateral hypodense thyroid nodules are seen more prominent on the right side. Bones: No suspicious bony lesions. Visualized cervical spine appears normally aligned. IMPRESSION: 1. No gross acute intracranial abnormalities. No area of abnormal intracranial enhancement. 2. No hemodynamically significant stenosis or aneurysm in visualized intracranial circulation. 3. No hemodynamically significant stenosis is seen in bilateral neck arteries. 4. Heterogeneous contrast enhancement of thyroid gland concerning for nodular goiter. Further evaluation with outpatient thyroid ultrasound is recommended. No significant discrepancies from preliminary reading. Any quantitative measurements of stenosis were performed using NASCET criteria. Dictated by: Spencer Ribeiro M.D. on 09/02/2023 at 8:26 Approved by: Spencer Ribeiro M.D. on 09/02/2023 at 8:28
[2023-09-02 03:15] VITALS: BP 97/58; PULSE 88; RESP 16; TEMP 36.3; O2SAT 96
[2023-09-02] MEDS: PANTOPRAZOLE DR 40 MG TABLET PO (05:10)
[2023-09-02] MEDS: LEVOTHYROXINE 50 MCG TABLET PO (05:10)
[2023-09-02 08:00] VITALS: BP 99/52; PULSE 95; RESP 18; TEMP 36.8; O2SAT 95
[2023-09-02 08:48] LABS: Add Manual Diff / Slide Review NO; Basophils Absolute Auto 0 /uL (0-100); Basophils Percent Auto 0.9 % (0-2); Eosinophils Absolute Auto 100 /uL (0-450); Eosinophils Percent Auto 3.7 % (2-4); Hematocrit 27.2 % (36-46); Hemoglobin 8.6 g/dL (12.0-16.0); Lymphocytes Absolute Auto 1000 /uL (1100-4500); Lymphocytes Percent Auto 26.7 % (25-40); Mean Corpuscular HGB Conc 31.6 % (30-36); Mean Corpuscular Hemoglobin 26.1 PG (26-34); Mean Corpuscular Volume 82.7 fL (80-100); Monocytes Absolute Auto 400 /uL (0-900); Monocytes Percent Auto 10.9 % (3-14); Neutrophils Absolute Auto 2100 /uL (1500-7000); Neutrophils Percent Auto 57.8 % (50-75); Platelet Count 439 X10^3/uL (150-400); Red Cell Distribution Width 16.9 % (11.6-14.8); White Blood Cell Count 3.6 X10^3/uL (4.5-11.0)
[2023-09-02 08:52] LABS: Hemoglobin A1C% w Est Avg Glu 6.5 % (4.0-6.0)
[2023-09-02] MEDS: ASPIRIN EC 81 MG TABLET PO (08:53)
[2023-09-02] MEDS: ATORVASTATIN 20 MG TABLET 40 MG PO (08:53)
[2023-09-02] MEDS: CITALOPRAM 10 MG TABLET 20 MG PO (08:53)
[2023-09-02] MEDS: DOCUSATE 100 MG CAPSULE PO (08:53)
[2023-09-02] MEDS: HEPARIN 5,000 UNIT/ML VIAL 5000 UNIT SUBCUT (08:53)
[2023-09-02] MEDS: GABAPENTIN 600 MG TABLET PO ×2 (08:53→13:37)
--- NOTE | 2023-09-02 08:57 | CM.DANOTE ---
DCP: Case received, EMR reviewed and met with patient. [id number], Stefanie, was at bedside. Introduced self and role. Was able to obtain information regarding patient's baseline activity status prior to admission. DCP assessment completed with information currently available. Patient is a 73 year old female who admitted yesterday evening to the care of the hospitalist team. PCP: Dr. Patton. Payer: confirmed: [facility] Patient came to the hospital via ambulance secondary to having difficulty with her speech. Spouse had been concerned about her speech and had called the medics. Patient has history of Diabetes, CKD, anemia. Notes indicate that patient had no difficulties with swallowing. Patient is here for CVA workup, will have MRI, echo. Met with patient in her room. [id number], Stefanie, at bedside. Patient was having her breakfast, alert. Confirmed that she resides here in [place] with spouse, [place]. She has indicated that she is independent at her baseline. She was able to converse, stated, sometimes it's hard to chew or talk, I have TMJ. P: DCP to continue to follow. Will have MRI today and echo, and will work with the therapy team. Will be available for any needs. Kath Calderon RN/Bid Writer Discharge Planning/Care Management CM Discharge Assessment Start: 09/02/23 08:54 Freq: Status: Active Protocol: Document 09/02/23 08:54 (Rec: 09/02/23 08:57 [id number]) Discharge Planning Assessment Assigned Industrial Truck Mechanic Kath Calderon RN/Bid Writer Advance Directives? No History Provided By Patient,Family Member,Medical Record Prior Living Arrangements House Household Members spouse Type of transporation used prior to Drives own vehicle admit Independent with ADL's Yes Is patient alert and oriented? Yes Caregiver for Another No Barriers to Discharge No Discharge Plan Home Transportation Arrangement Family Referrals Initiated Other Additional Comment Will see how patient does with the therapy team. Whiteboard Updated in Patient Room with Yes name and ext. # of Industrial Truck Mechanic Review Status In Process Next Review Type Continued Stay Review
[2023-09-02 09:02] LABS: HEMOLYSIS < 15 (0-50); Iron 72 ug/dL (37-170)
[2023-09-02 09:06] LABS: BUN Creatinine Ratio 27.6 (6-22); Blood Urea Nitrogen 35 mg/dL (7-17); Calcium 9.5 mg/dL (8.4-10.2); Carbon Dioxide 20 mmol/L (22-32); Chloride 108 mmol/L (98-107); Cholesterol 166 mg/dL (140-199); Estimated Glomerular Filt Rate 45 mL/min (>60); Glucose 98 mg/dL (80-110); HDL Cholesterol 52 mg/dL (40-60); HEMOLYSIS < 15 (0-50); LDL Cholesterol Calculated 84 mg/dL (<100); Sodium 138 mmol/L (137-145); Triglycerides 148 mg/dL (35-150)
[2023-09-02 09:13] LABS: Percent Iron Saturation 19 % (15-50); Total Iron Binding Capacity 382 ug/dL (265-497); Transferrin 358 mg/dL (206-381)
--- NOTE | 2023-09-02 10:53 | OT.IP.EVAL ---
Current Diagnoses Anemia, unspecified (09/01/23) Hypothyroidism, unspecified (09/01/23) Type 2 diabetes mellitus without complications (09/01/23) Hyperlipidemia, unspecified (09/01/23) Major depressive disorder, single episode, unspecified (09/01/23) Cerebral infarction, unspecified (09/01/23) Unspecified asthma, uncomplicated (09/01/23) Gastro-esophageal reflux disease without esophagitis (09/01/23) Acute kidney failure, unspecified (09/01/23) Chronic kidney disease, unspecified (09/01/23) Aphasia (09/01/23) Past Medical History (Last Updated 09/02/23 @ 00:11 by Denis Woods MD) Anemia Asthma CKD (chronic kidney disease) Depression Diabetes GERD (gastroesophageal reflux disease) HLD (hyperlipidemia) Hypothyroidism Right wrist fracture Occupational Therapy Inpatient Evaluation/Re-Eval M1 PT/OT-IP Prior Functional Status Start: 09/02/23 12:31 Freq: NEEDED Status: Active Protocol: Document 09/02/23 12:31 CGR (Rec: 09/02/23 13:01 CGR [id number]) Medical Review Prior Functional Status Medical History Reviewed Yes Communication Pt is an effective verbal communicator but is slow to respond and needs increased time for comprehension. Mobility and Gait Pt was IND at baseline but uses a SPC to assist with L foot pain if she is walking a longer distance. Pt has L foot pain from a crushing injury obtained in the past. 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 Social History Household Members spouse Living Arrangements House Number of Floors (Floors) Two Floors Number of Stairs To Enter/Railing? Pt has a ramp to enter the main level of the home. does the laundry which is the only thing needed in the daylight basement. Home Environment High Toilet,Tub/Shower Doors Home Equipment Front Wheel Walker,Four Wheel Walker,Straight Cane,Shower Seat without Backrest,Hand Held Shower,Grab Bars Near Toilet,Grab Bars In Shower Employment Status Retired Additional Social History Comment Pt lives with her in [place]. M2 OT-IP Current Condition Start: 09/02/23 12:31 Freq: Status: Active Protocol: Document 09/02/23 12:31 CGR (Rec: 09/02/23 13:01 R [id number]) Occupational Therapy Current Condition Current Condition Evaluation Date 09/02/23 Treatment Diagnosis Possible TIA, MRI negative, dehydration Diagnosis Onset Date 09/01/23 M3 OT- IP Subjective and Pain Start: 09/02/23 12:31 Freq: Status: Active Protocol: Document 09/02/23 12:31 CGR (Rec: 09/02/23 13:01 R [id number]) OT- Subjective Occupational Therapy Visit Type Type Initial Evaluation Visit Start Time 10:21 Visit Stop Time 10:53 Total Visit Minutes 32 Notes Pt's , son and daughter or daughter in law present in room for session. OT Pain Assessment Pain When Pain Assessed At Rest Location Bilateral Eye Intensity 5 Scale Used Numeric (0 - 10) Management Techniques Modification of Treatment,Re- positioning,Timing of Activity with Medications M4 OT- IP ADL's Start: 09/02/23 12:31 Freq: Status: Active Protocol: Document 09/02/23 12:31 CGR (Rec: 09/02/23 13:01 R [id number]) OT [id number] Comments OT Self-Feeding Comments not meal time OT ADL-Grooming General Evaluation Grooming Ability Independent Areas Needing Assistance Retrieving/Set-up of Grooming Items,Combing/Brushing Hair, Face Washing Comments OT Grooming Comments Pt stood at sink and washed face, hands, and brushed hair. OT ADL-Oral Care General Eval Oral Care Ability Independent Areas of Assistance Brushing Teeth Comments Oral Care Comments standing at sink OT ADL-Dressing General Eval Lower Body Dressing Ability Independent Areas Needing Assistance Socks Comments OT Dressing Comments socks seated EOB OT ADL-Toileting General Evaluation Toileting Ability Independent Comments OT Toileting Comments seated on toilet OT ADL-Bathing Bathing Type Bathing Type Shower Comments OT Bathing Comments not performed Pt is requesting to take a shower. Notified nursing of need for shower. M5 OT- IP IADL's Start: 09/02/23 12:31 Freq: Status: Active Protocol: Document 09/02/23 12:31 CGR (Rec: 09/02/23 13:01 R [id number]) OT-Instrumental Activities of Daily Living Deficits IADL Deficits Identified Deficits Home Safety Awareness Awareness of Need for Assistance at Home Decreased Awareness Ability to Problem Solve Emergency Able to Problem Solve Situations Medication Management Medication Management Comments Concerns for pts ability to perform safely at this time. Money Management Money Management Comments Concerns for pts ability to perform safely at this time. Meal Preparation Meal Preparation Comments Concerns for pts ability to perform safely at this time. Toddler Lead Teacher Toddler Lead Teacher Comments Concerns for pts ability to perform safely at this time. Driving Driving Comments Concerns for pts ability to perform safely at this time. M6 OT- IP Functional Cognition Start: 09/02/23 12:31 Freq: Status: Active Protocol: Document 09/02/23 12:31 CGR (Rec: 09/02/23 13:01 CGR [id number]) Cognitive Factors Limiting Selfcare Function Cognitive Ability Level of Alertness Alert,Confusional State Patient Orientation Name,Age,Birthday,Month,Date, Day of Week,Place,Situation Attention Span Ability Capable of Focused Attention, Capable of Sustained Attention Ability to Follow Commands Able to Follow One Step Commands with Increased Time, Able to Follow One Step Commands with Repetition Cognitive Comments Cognitive Assessment Comments Pt would benefit from fromal cog assessment. Pt is slow to respond, needing extra time for processing. When asked what she did before she retired, she defered to her . OT- Vision and Hearing OT- Hearing Assessment OT- Hearing Assessment WFL OT- Vision Assessment Visual Acuity Glasses All The Time Visual Attentiveness WFL Occular Pursuits WFL Visual Convergence WFL Vision Assessment Comments Pt wears bifocals typically and does not have them here presently M7 OT- IP Mobility and Balance Start: 09/02/23 12:31 Freq: Status: Active Protocol: Document 09/02/23 12:31 CGR (Rec: 09/02/23 13:01 CGR [id number]) OT- Bed Mobility Assessment Supine to Sit Supine to Sit Assist Independent Sit to Supine Sit to Supine Assist Independent Scooting Scooting to Edge of Bed Independent OT-Transfer Assessment Sit to and From Stand Sit to and from Stand Standby Assistance Transfers Transfer Ability Standby Assistance Technique Transfer Destination Bed,Toilet Transfer Technique Stand Step Pivot Devices Transfer Assistive Devices None Comments Mobility Comments Pt ambulates around the room with SBA and no AD. Pt has one small LOB but recoved quickly without difficulty OT- Gait Assessment Gait Gait Assistance Required: Standby Assistance Assistive Devices Assistive Device None OT- Balance Assessment Sitting Balance and Reactions Static Sitting Balance Ability Normal Dynamic Sitting Balance Ability Normal M8 OT- IP Objective Assessments Start: 09/02/23 12:31 Freq: Status: Active Protocol: Document 09/02/23 12:31 CGR (Rec: 09/02/23 13:01 CGR [id number]) OT Gross Range of Motion Upper Extremity Range of Motion Assessment Within Functional Limits OT Strength Upper Extremity Strength Assessment Within Functional Limits Comments Strength Comments grossly 4-/5 to 4/5 OT- Coordination Assessment Upper Extremity Finger to Nose Test Within Functional Limits Finger Tapping Test Within Functional Limits OT-Muscle Tone Assessment Muscle Tone WNL Yes OT Sensation Assessment Edema Edema Absent M9 OT- IP Assessment and Plan Start: 09/02/23 12:31 Freq: Status: Active Protocol: Document 09/02/23 12:31 CGR (Rec: 09/02/23 13:01 CGR [id number]) OT Summary Assessment and Plan Potential Rehabilitation Potential Excellent Analytic Complexity at Evaluation Low Summary OT Impairments Balance,Functional Cognition, Functional Mobility,Shower Transfers,Activity Tolerance Progress Towards Goals Progressing Toward Goals,Safe For Discharge Assessment Summary Pt presents as a low complexity evaluation s/p admit for AMS. Pt appears to be clearing and would benefit from a cognitive assessment if not performed by ST. Recommend d/c home with family support. Goals Self-Feeding Goal Independent Grooming Goal Independent Dressing Goal Independent Toileting Goal Independent Bathing Goal Independent Toilet Transfer Goal Independent Shower Transfer Goal Independent OT-Other Goals Perform cog assessment Days to Meet Goals 2 Frequency of Treatment Frequency Of Treatment Once a Day Treatment Plan OT Treatment Plan Functional Cognition Training, Patient/Family Education, Discharge Planning Other Treatment Recommendations and Next cog assessment Treatment Focus Discharge Recommendations OT Discharge Recommendations Home with Assistance Transportation Needs at Discharge Private Vehicle
[2023-09-02 12:00] VITALS: BP 106/65; PULSE 99; RESP 17; TEMP 36.1; O2SAT 99
--- NOTE | 2023-09-02 12:15 | PT.IIE ---
Current Diagnoses Anemia, unspecified (09/01/23) Hypothyroidism, unspecified (09/01/23) Type 2 diabetes mellitus without complications (09/01/23) Hyperlipidemia, unspecified (09/01/23) Major depressive disorder, single episode, unspecified (09/01/23) Cerebral infarction, unspecified (09/01/23) Unspecified asthma, uncomplicated (09/01/23) Gastro-esophageal reflux disease without esophagitis (09/01/23) Acute kidney failure, unspecified (09/01/23) Chronic kidney disease, unspecified (09/01/23) Aphasia (09/01/23) Medical History (Last Updated 09/02/23 @ 00:11 by Denis Woods MD) Anemia Asthma CKD (chronic kidney disease) Depression Diabetes GERD (gastroesophageal reflux disease) HLD (hyperlipidemia) Hypothyroidism Right wrist fracture Physical Therapy Inpatient Evaluation/Re-Eval M1 PT/OT-IP Prior Functional Status Start: 09/02/23 08:12 Freq: NEEDED Status: Active Protocol: Document 09/02/23 12:15 AW (Rec: 09/02/23 13:32 AW [id number]) Medical Review Prior Functional Status Medical History Reviewed Yes Communication Pt is able to make her needs knwon. Spouse states pt was slightly forgetful at baseline . Mobility and Gait Independent with occasional use of a cane. Pt states she tends to cruise furniture at home. Activities of Daily Living and IADL's Independent. Pt drives. Social History Household Members spouse Living Arrangements House Number of Floors (Floors) Two Floors Number of Stairs To Enter/Railing? Ramped entrance. No need to access the basement. Home Environment High Toilet,Tub/Shower Home Equipment Front Wheel Walker,Four Wheel Walker,Straight Cane,Shower Seat without Backrest,Hand Held Shower,Grab Bars Near Toilet,Grab Bars In Shower Employment Status Retired M1 PT/OT-IP Prior Functional Status Start: 09/02/23 12:31 Freq: NEEDED Status: Active Protocol: Document 09/02/23 12:31 CGR (Rec: 09/02/23 13:01 CGR [id number]) Medical Review Prior Functional Status Medical History Reviewed Yes Communication Pt is an effective verbal communicator but is slow to respond and needs increased time for comprehension. Mobility and Gait Pt was IND at baseline but uses a SPC to assist with L foot pain if she is walking a longer distance. Pt has L foot pain from a crushing injury obtained in the past. 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 Social History Household Members spouse Living Arrangements House Number of Floors (Floors) Two Floors Number of Stairs To Enter/Railing? Pt has a ramp to enter the main level of the home. does the laundry which is the only thing needed in the daylight basement. Home Environment High Toilet,Tub/Shower Doors Home Equipment Front Wheel Walker,Four Wheel Walker,Straight Cane,Shower Seat without Backrest,Hand Held Shower,Grab Bars Near Toilet,Grab Bars In Shower Employment Status Retired Additional Social History Comment Pt lives with her in [place]. M2 PT-IP Current Condition Start: 09/02/23 08:12 Freq: NEEDED Status: Active Protocol: Document 09/02/23 12:15 AW (Rec: 09/02/23 13:32 AW [id number]) Physical Therapy Current Condition Current Condition Evaluation Date 09/02/23 Treatment Diagnosis word finding difficulty; possible TIA; dual task deficit Onset Date 08/31/23 M3 PT-IP Subjective Start: 09/02/23 08:12 Freq: NEEDED Status: Active Protocol: Document 09/02/23 12:15 AW (Rec: 09/02/23 13:32 AW [id number]) Subjective Physical Therapy Visit Type Type Initial Evaluation Visit Start Time 11:43 Visit Stop Time 12:15 Total Visit Minutes 32 Physical Therapy Visit Comments Patient Comments Pt is willing to participate with PT Therapy Pain Assessment Pain When Pain Assessed During Mobility Pain Present Pain Present Denied Pain M4 PT-IP Mobility and Gait Start: 09/02/23 08:12 Freq: NEEDED Status: Active Protocol: Document 09/02/23 12:15 AW (Rec: 09/02/23 13:32 AW [id number]) PT-Bed Mobility Assessment Supine to Sit Supine to Sit Independent Sit to Supine Sit to Supine Independent PT-Transfer Assessment Sit to and From Stand Sit to and from Stand Independent,Use of Upper Extremities Equipment Transfer Assistive Device None Transfers Transfer Destination Bed,Chair Transfer Technique Stand Step Pivot Transfer Ability Level of Assist Independent,Use of Upper Extremities Comments Mobility Comments Pt demonstrates independent bed mobility and transfers. Gait Assessment Gait Gait Assistance Required: Standby Assistance Distance (Feet) 225 Assistive Devices Assistive Device None Gait Deviations General Gait Pattern Lateral Trunk Lean,Wide Based Gait Factors Limiting Gait Function Factors Limiting Gait Function Decreased Strength,Poor Balance Comments Gait Comments Pt tends to stay near the wall , touching the rails frequently. She admits to cruising furniture at home. She knows the number of handholds from her bed to her toilet. Stair Climbing Assessment Comments Stair Climbing Comments Not assessed. uses a ramp at home. PT-Balance Assessment Sitting Balance and Reactions Static Sitting Balance Ability Normal Dynamic Sitting Balance Ability Normal Standing Balance and Reactions Static Standing Balance Ability Good Dynamic Standing Balance Ability Fair Device Used no AD Balance Tests Romberg 10 sec EO and EC Tandem Standing able to position after multiple attempts; holds 5 sec Functional Assessments Functional Tests Timed Up and Go 21 seconds standard; 28 seconds dual-task Other Functional Tests Performed Pt used no AD. Dual task was counting backward by threes starting with 100. M5 PT-IP Objective Assessments Start: 09/02/23 08:12 Freq: NEEDED Status: Active Protocol: Document 09/02/23 12:15 AW (Rec: 09/02/23 13:32 AW [id number]) Orientation Orientation/Cognition Level of Alertness Alert Orientation Name,Date,Year,Day of Week, Place,Situation Safety Awareness Understands Safety Issues Gross Range of Motion Upper Extremity ROM Assessment Within Functional Limits Lower Extremity ROM Assessment Within Functional Limits Strength Comments Strength Comments UE strength grossly 4-/5. LE strength ~4/5. No unilateral deficit noted. Coordination Assessment Gross Coordination Gross Coordination WNL Assessment Finger to Nose Test Normal Performance Heel on [place] Test Normal Performance Sensation Assessment Sensation Gross Sensation WNL Muscle Tone Muscle Tone WNL Yes Other Assessments Other Other Assessments Ocular motor and vestibular screens WNL. M6 PT-IP Treatment Start: 09/02/23 08:12 Freq: NEEDED Status: Active Protocol: Document 09/02/23 12:15 AW (Rec: 09/02/23 13:32 AW [id number]) Physical Therapy Treatment Education Education Provided Safety Other Treatments Other Treatment Performed Discussed dual task deficit and its implications for safe mobility. M7 PT-IP Assessment and Plan Start: 09/02/23 08:12 Freq: NEEDED Status: Active Protocol: Document 09/02/23 12:15 AW (Rec: 09/02/23 13:32 AW [id number]) PT Summary Assessment and Plan Summary Impairments Strength,Balance,Cognition, Gait Assessment Summary Sima Payton is a 73 yo woman seen for PT evaluation per stroke protocol. Presenting symptoms were aphasia, word finding difficulties which worsened over two days. PMH includes chronic pain, DM2, HLD, hypothyroidism. All stroke imaging was negative. Baseline : Pt is typically independently mobile and uses a SPC occasionally, mostly when in unfamiliar locations. She tends to cruise furniture at home. CLOF: Neuro screen is relatively unremarkable with no unilateral strength or sensation deficits. Pt appears to be needing extra processing time and family (in room and by phone) agree with this assessment. Pt's mobility is consistent with her baseline. She participates in dual task Timed Up and Go testing which does reveal a 33 % dual task cost. PT recommends discharge home with assist once pt is medically stable. No further acute PT is indicated but pt may benefit from outpatient PT aimed at improving her dual task ability. Frequency of Treatment Frequency Of Treatment Discharge Recommendations To Nursing Amount of Assist Needed Independent Discharge Recommendations PT Discharge Recommendations Home with Assistance, Outpatient PT Transportation Needs at Discharge Private Vehicle
[2023-09-02] MEDS: SODIUM CHLORIDE 0.9% 1,000 ML 300 ML IV (13:14)
--- NOTE | 2023-09-02 14:20 | PC.NURSE ---
Addendum entered by Yara Harding R.N. 09/02/23 16:25: infusion complete. d/c complete. w/c assisted to her car, driven by her Alejandro. Original Note: a/o, voices needs. occ w/ difficulty expressing self, word searching, slow responses. all tests neg for CVA, per hospitalist, patient has s/sx of dehydration, 1L fluid NS bolus ordered and infusing. after infusion, patient to d/c home. family at bedside.
--- NOTE | 2023-09-02 16:21 | ST.IPSLE ---
Visit Care Team Role Provider Type Derrick Patton MD Family Provider Non-Staff Primary Care Provider Specialty: Family Practice Address: [address] [place] [address], [phone] Email: Angela Dickson MD Emergency Provider Physician Referring Provider Specialty: Emergency Medicine Address: [address] [place] [address], [id number] Email: Denis Woods MD Admit Provider Physician Attending Provider Specialty: Internal Medicine Address: [address] [place] [address], [phone] Fax: Email: [email or web address] Diagnoses Anemia, unspecified (09/01/23) Hypothyroidism, unspecified (09/01/23) Type 2 diabetes mellitus without complications (09/01/23) Hyperlipidemia, unspecified (09/01/23) Major depressive disorder, single episode, unspecified (09/01/23) Cerebral infarction, unspecified (09/01/23) Unspecified asthma, uncomplicated (09/01/23) Gastro-esophageal reflux disease without esophagitis (09/01/23) Acute kidney failure, unspecified (09/01/23) Chronic kidney disease, unspecified (09/01/23) Aphasia (09/01/23) Past Medical History (Last Updated 09/02/23 @ 00:11 by Denis Woods MD) Anemia (Medical) Asthma (Medical) CKD (chronic kidney disease) (Medical) Depression (Medical) Diabetes (Medical) GERD (gastroesophageal reflux disease) (Medical) HLD (hyperlipidemia) (Medical) Hypothyroidism (Medical) Right wrist fracture (Medical) Speech-Language Pathology Speech/Language Eval P[employer]ER Adult Cognitive Linguistic Eval Start: 09/02/23 09:21 Freq: Status: Active Protocol: Document 09/02/23 09:21 [facility] (Rec: 09/02/23 09:22 [facility] [id number]) Adult Cognitive Linguistic Evaluation Session Time Visit Start Time 08:40 Visit Stop Time 09:20 Total Visit Minutes 40 Visit Information Visit Number 1 Referral Referring Provider Denis Hinojosa Reason for Referral Expressive aphasia upon admission to ER Setting Assessment Location Acute Care Visit Type Note Type Initial evaluation Next Note Type Next Note Type Treatment Note Patient Information Identification Type Name Patient History Per H&P: 73 y/o with PMH of HLD, DM, CKD, anemia, hypothyroidism, MSK pain, chronic use of opiates, developed difficulty speaking and confusion 2 days prior to arrival to ED. Presented with and son, with global, expressive > receptive aphasia . She had no difficulties with swallowing, focal weakness or numbness. PMHx significant for: CKD (chronic kidney disease) HLD (hyperlipidemia) Right wrist fracture Depression Asthma GERD (gastroesophageal reflux disease) Hypothyroidism Diabetes Pt referred for ST evaluation d/t Pt admitted with expressive aphasia, difficulties communicating and finding words. CT and MRI negative for CVA. Hearing Hearing Level Normal Vision Vision Status Impaired Subjective Patient Report Pt sitting upright in bed. Pt son, daughter in law and present during evaluation. Family reports Pt was initially not communicating at all prior to hospital admission with Pt staring out with blank facial expression. However, Pt is not communicating in full sentences with family reporting Pt with lingering word finding difficulties. Pt also reports word finding issues compared to baseline. Assessment Oral Motor Examination Completed Yes Results Pt with overall slow oral motor movements and generalized weakness and reduced ROM of lingual and labial structures. Informal Assessment Expressive Language Normal No Pragmatic Language Normal Yes Speech Impairment(s) Slow speech rate Formal Assessment Standardized Test/Screener Type Quick Aphasia Battery (QAB) Administration Complete Results ST adminsitered Quick Aphasia Battery (QAB) with Pt scoring a total score of 8.74 indicating a severity rating of mild aphasia. Pt scored the following on each section: word comprehension 10, sentence comprehension 8.33, word finding 7, grammatical construction 8, speech motor programming 10, repetition 10, reading 10. Pt demonstrated strengths in reading, repetition, and word comprehension, Pt demonstrated most deficits in word finding , and sentence comprehension. Pt with observed word finding and delayed processing during conversation. Findings/Results Language Function Mildly impaired Cognitive Function Within normal limits Findings Pt presents with mild expressive aphasia. Pt with word finding difficulties and slow/delayed speech pattern. Cognitive Communication Deficits Self-awareness of Cognitive- Predictive awareness (able to Communication Deficits predict problem; impact of impairments) Prognosis Prognosis Good Based on Family support Plan of Care Speech-Language Treatment Yes Patient/Caregiver Education Described results of evaluation,Patient expressed understanding of evaluation, Patient expressed agreement with goals and treatment plans Short Term Goals STG 1: Pt will utilize word finding compensatory strategies 100% of the time given mild verbal cues. STG 2: Pt will complete naming exercises with 80% accuracy given mild verbal cues. Skilled Nursing Goals LTG 1: Pt will improve expressive language for functional communication. Discharge Recommendations Home,Outpatient therapy
--- NOTE | 2023-09-02 16:22 | PM.DS.1 ---
History of Present Illness History of Present Illness Date Patient Seen: 09/01/23 Chief complaint: AMS Narrative: 73 y/o with PMH of HLD, DM, CKD, anemia, hypothyroidism, MSK pain, chronic use of opiates, developed difficulty speaking and confusion 2 days prior to arrival to ED. Presented with and son, with global, expressive > receptive aphasia. She had no difficulties with swallowing, focal weakness or numbness. Discharge Providers Provider Date of admission: 09/01/23 21:14 Discharge Date: 09/02/23 Primary care physician: Derrick Patton MD Consults: 09/02/23 00:00 Consult to Speech Therapy Evaluate & Treat Comment: aphasia, CVA Physician Instructions: Evaluate and treat 09/02/23 00:01 Consult to Physical Therapy Evaluate & Treat Comment: CVA Physician Instructions: Evaluate and Treat 09/02/23 00:02 Consult to Occupational Therapy Evaluate & Treat Comment: CVA Physician Instructions: Evaluate and treat Discharge provider: Carlos Decker DO Summary Hospital Course Discharge Diagnosis: (1) Toxic metabolic encephalopathy secondary to dehydration and chronic opiate use Status: Acute Plan: appears dehydrated with NEDA mentation improved rapidly with IVF (2) Possible Stroke: Qualifiers: CVA mechanism: unspecified Qualified Code(s): I63.9 - Cerebral infarction, unspecified Status: Acute Plan: MRI negative for stroke Risk factors - HLD, DM - already on statin - cafeteria monitor, echo - placed on daily baby aspirin (3) HLD (hyperlipidemia): Status: Acute Plan: On 40 of Lipitor. Lipid panel WNL. (4) CKD (chronic kidney disease): Status: Acute Plan: Cr in 11/2022 1.2 (5) NEDA (acute kidney injury): Status: Acute Plan: Cr 1.7, urine concentrated. thinks that she had enough to drink Had liter of NS in ED Cr improved to 1.27 with IVF (6) Anemia: Status: Acute Plan: iron panel WNL - Hx of NSAID for MSK pain but takes nexium (7) Diabetes: Status: Acute Plan: On 1 g of Metformin bid. A1C 6.5%. Metformin held - Cr 1.7 Instead SS for now (8) Depression: Status: Acute (9) Asthma: Status: Acute Plan: Singulair (10) Hypothyroidism: Status: Acute Plan: Synthroid 50 mcg daily. TSH WNR. (11) GERD (gastroesophageal reflux disease): Status: Acute Plan: PPI Hospital Course: Admitted for aphasia and encephalopathy with concern for stroke. MRI and CT head negative. Improved rapidly with IVF suggesting her symptoms were mostly dehydration-related. NEDA improved with IVF. Placed on baby aspirin. Exam Vital Signs (past 8 hours): - 09/02/23 12:00 Temperature 97 F L Pulse Rate 99 H Respiratory Rate 17 Blood Pressure 106/65 Pulse Oximetry 99 Oxygen Flow Rate 0 Oxygen Delivery Method Room Air Oxygen Flow Rate 0 Narrative Exam Narrative: sitting in bed in no distress, and son at bedside HENMT Other: normocephalic Eyes Other: reactive pupils, EOMI Neck Other: supple Resp Other: CTA Cardio Other: ARLETTE at Rt upper sternum GI Other: not distended Skin Other: pale Neuro Other: cognitive deficits - impaired memory, attention has improved and patient speaking normally but slower per family Extrem Other: w/o swelling Psych Other: appropriate mood Objective Labs 09/02/23 08:12 09/02/23 08:12 Labs: Laboratory Results - last 24 hr 09/01/23 09/01/23 09/02/23 20:00 20:18 08:12 WBC 3.9 L 3.6 L RBC 3.69 L 3.30 L Hgb 9.8 L 8.6 L Hct 30.8 L 27.2 L MCV 83.5 82.7 MCH 26.4 26.1 MCHC 31.6 31.6 RDW 17.6 H 16.9 H Plt Count 488 H 439 H Neut % (Auto) 56.5 57.8 Lymph % (Auto) 26.6 26.7 Taylor % (Auto) 15.4 H 10.9 Eos % (Auto) 0.9 L 3.7 Baso % (Auto) 0.6 0.9 Neut # (Auto) 2200 2100 Lymph # (Auto) 1000 L 1000 L Taylor # (Auto) 600 400 Eos # (Auto) 0 100 Baso # (Auto) 0 0 Sodium 139 138 Potassium 4.5 4.0 Chloride 107 108 H Carbon Dioxide 13 L 20 L BUN 46 H 35 H Creatinine 1.70 H 1.27 H Estimated GFR 32 L 45 L BUN/Creatinine Ratio 27.1 H 27.6 H Glucose 128 H 98 Hemoglobin A1c 6.5 H Lactate 1.2 Calcium 10.1 9.5 Iron 72 TIBC 382 % Saturation 19 Transferrin 358 Total Bilirubin 0.5 AST 22 ALT 13 Alkaline Phosphatase 89 Total Protein 7.9 Albumin 4.6 Globulin 3.3 Albumin/Globulin Ratio 1.4 Triglycerides 148 Cholesterol 166 LDL Cholesterol, Calc 84 HDL Cholesterol 52 TSH 0.590 Urine Color Yellow Urine Appearance Cloudy Urine pH 5.5 Ur Specific Gamaliel >=1.030 H Urine Protein 1+ H Urine Glucose (UA) Negative Urine Ketones 1+ H Urine Occult Blood 1+ H Urine Nitrate Negative Urine Bilirubin 2+ H Ur Bilirubin Confirm Negative Urine Urobilinogen 0.2 Ur Leukocyte Esterase 2+ H Urine RBC 1-5/hpf Urine WBC 5-10/hpf H Ur Squamous Epith Cells None seen Amorphous Sediment 2+ Urine Bacteria None seen Ur Culture Indicated? Specimen cultured U Opiates 300ng/mL cut Negative Ur Oxycodone Screen Positive H Urine Methadone Screen Negative Ur Barbiturates Screen Negative U Tricyclic Antidepress Negative Ur Phencyclidine Scrn Negative Ur Amphetamines Screen Negative U Methamphetamines Scrn Negative Ur MDMA Scrn (Ecstasy) Negative U Benzodiazepines Scrn Negative Urine Cocaine Screen Negative U Marijuana (THC) Screen Negative [facility] Medical History (Updated 09/02/23 @ 00:11 by Denis Woods MD) Anemia CKD (chronic kidney disease) HLD (hyperlipidemia) Right wrist fracture Depression Asthma GERD (gastroesophageal reflux disease) Hypothyroidism Diabetes Social History household members: spouse Smoking Status: Never smoker Discharge Plan Discharge Plan Patient Disposition: Home Provider Discharge Comment: You were admitted for concern for stroke. This was negative on CT and MRI of your head. You likely became very dehydrated. Try to drink more water at home. I've started you on a baby aspirin daily. Discharge orders & Medications Prescriptions: New aspirin 81 mg Tablet,Delayed Release (Dr/Ec) 81 mg PO DAILY Qty: 30 0RF Continued gabapentin 600 mg tablet 600 mg PO QID metformin 1,000 mg tablet 1,000 mg PO BID levothyroxine 50 mcg capsule 50 mcg PO DAILY esomeprazole magnesium [Nexium] 40 mg capsule,delayed release(DR/EC) 40 mg PO DAILY citalopram 20 mg tablet 20 mg PO 4XD PRN (Reason: anxiety, depression) montelukast 10 mg tablet 10 mg PO QPM atorvastatin 40 mg tablet 40 mg PO DAILY Follow up/Referrals: Derrick Patton MD [Primary Care Provider] - 2 Weeks Visit Report/Discharge Packet Instructions: DI for Dehydration -- Adult Stand Alone Forms: Patient Portal/API, Stroke Signs & Symptoms Discharge Data Primary Care Provider: Derrick Patton
== END 2023-09-02 15:30 | disposition home or self-care (01) | DRG 64 ==
LOC: ED 20:57 → AC 21:16
PROVIDERS: Admitting Provider Internal Medicine; Emergency Provider Emergency Medicine; Family Provider Family Medicine; PCP Family Medicine; Referring Provider Emergency Medicine; Visit Provider Internal Medicine
DX: I63.9 Cerebral infarction, unspecified (principal); G92.8 Other toxic encephalopathy; N17.9 Acute kidney failure, unspecified; E86.0 Dehydration; R47.01 Aphasia; E78.5 Hyperlipidemia, unspecified; J45.909 Unspecified asthma, uncomplicated; E03.9 Hypothyroidism, unspecified; K21.9 Gastro-esophageal reflux disease without esophagitis; F32.A Depression, unspecified; T40.605A Adverse effect of unspecified narcotics, initial encounter; E11.22 Type 2 diabetes mellitus with diabetic chronic kidney disease; N18.9 Chronic kidney disease, unspecified; D63.1 Anemia in chronic kidney disease; R29.703 NIHSS score 3; R29.706 NIHSS score 6; Z79.84 Long term (current) use of oral hypoglycemic drugs
CPT/HCPCS: 36415; 70450; 70496; 70498; 70551; 71275; 80048; 80053; 80061; 80305; 81001; 82962; 83036; 83540; 83550; 83605; 84443; 85025; 87040; 87086; 92523; 93005; 93010; 93306; 97162; 97165; 97535; 99285; J1644; Q9967